=== PATIENT | male | born 1990 | race American Indian/Alaskan Native ===

== ENCOUNTER 2019-02-03 21:27 | Inpatient (IN) | payer SELFPAY ==
--- NOTE | 2019-02-03 23:02 | EDM.PDOC ---
ED HPI GENERAL MEDICAL PROBLEM - General Chief Complaint: Gastrointestinal Problem Stated Complaint: VOMITING, WEIGHT LOSS x1 WEEK Time Seen by Provider: 02/03/19 22:35 Source of Information: Reports: Patient History Limitations: Reports: No Limitations - History of Present Illness INITIAL COMMENTS - FREE TEXT/NARRATIVE: This 29 yo male patient reports to the ED with generalized weakness. The patient reports he has lost 20-30 pounds over the past 3 weeks. The patient reports diffuse abdominal pain. The patient reports he has had difficulties having bowel movements. The patient reports he has hat intermittent episodes of vomiting (last episode was this evening). The patient admits to IV drug use up to 2 weeks ago. The patient continues to smoke marijuana and cigarettes. The patient admits to having a poor diet. The patient has a family history of diabetes and states he used to be a diabetic as a child. Duration: Week(s):, Constant, Getting Worse Location: Reports: Generalized Quality: Reports: Other Severity: Moderate Improves with: Reports: None Worsens with: Reports: None Context: Reports: Other - Related Data Allergies Allergy/AdvReac Type Severity Reaction Status Date / Time amphetamine [From Adderall] Allergy Other Verified 02/03/19 21:44 dextroamphetamine Allergy Other Verified 02/03/19 21:44 [From Adderall] Home Meds: Home Meds . [No Known Home Meds] 01/30/14 [History] Past Medical History - Past Health History Medical/Surgical History: Denies Medical/Surgical History Social & Family History - Tobacco Use Smoking Status *Q: Never Smoker - Caffeine Use Caffeine Use: Reports: Coffee - Recreational Drug Use Recreational Drug Use: Yes Drug Use in Last 12 Months: Yes Recreational Drug Type: Reports: Marijuana/Hashish, Methaqualone Recreational Drug Use Frequency: Daily Recreational Drug Last Use: Marijuana daily ED ROS GENERAL - Review of Systems Review Of Systems: ROS reveals no pertinent complaints other than HPI. ED EXAM, GENERAL - Physical Exam Exam: See Below Exam Limited By: No Limitations General Appearance: Alert, WD/WN, Moderate Distress Eye Exam: Bilateral Eye: EOMI, Normal Inspection, PERRL Ears: Normal External Exam, Normal Canal, Hearing Grossly Normal, Normal TMs Nose: Normal Inspection, Normal Mucosa, No Blood Throat/Mouth: Normal Inspection, Normal Lips, Normal Teeth, Normal Gums, Normal Oropharynx, Normal Voice, No Airway Compromise Head: Atraumatic, Normocephalic Neck: Normal Inspection, Supple, Non-Tender, Full Range of Motion Respiratory/Chest: No Respiratory Distress, Lungs Clear, Normal Breath Sounds, No Accessory Muscle Use, Chest Non-Tender Cardiovascular: Normal Peripheral Pulses, Regular Rate, Rhythm, No Edema, No Gallop, No JVD, No Murmur, No Rub GI/Abdominal: Normal Bowel Sounds, Soft, No Organomegaly, No Distention, No Abnormal Bruit, No Mass, Pelvis Stable, Tender (diffuse abdominal tenderness), Other (Scar RLQ from appendectomy) (Male) Exam: Deferred Rectal (Males) Exam: Deferred Back Exam: Normal Inspection, Full Range of Motion, NT Extremities: Normal Inspection, Normal Range of Motion, Non-Tender, Normal Capillary Refill, No Pedal Edema Neurological: Alert, Oriented, CN II-XII Intact, Normal Cognition, Normal Gait, Normal Reflexes, No Motor/Sensory Deficits Psychiatric: Depressed Mood, Flat Affect Skin Exam: Warm, Dry, Intact, Normal Color, No Rash Lymphatic: No Adenopathy Course - Vital Signs Last Recorded V/S: Last Vital Signs Temp 36.6 C 02/03/19 21:35 Pulse 98 02/03/19 21:35 Resp 16 02/03/19 21:35 BP 134/82 02/03/19 21:35 Pulse Ox 96 02/03/19 21:35 - Orders/Labs/Meds Orders: Active Orders 24 hr Category Date Time Status CULTURE BLOOD [BC] Stat Lab 02/03/19 22:41 Ordered KETONES,BLOOD [CHEM] Stat Lab 02/04/19 00:05 Ordered Insulin Regular, Human [HumuLIN R] 100 unit Med 02/04/19 01:00 Ordered Sodium Chloride 0.9% [Normal Saline] 99 ml IV TITRATE Medication Orders Insulin Human Regular 100 unit (/ Sodium Chloride) 100 mls @ 2 mls/hr IV TITRATE DAPHNE; Protocol Labs: Laboratory Tests 02/03/19 02/03/19 02/03/19 Range/Units 22:52 22:52 22:52 WBC (5.0-10.0) 10^3/uL RBC (4.6-6.2) 10^6/uL Hgb (14.0-18.0) g/dL Hct (40.0-54.0) % MCV (80-100) fL MCH (27.0-34.0) pg MCHC (33.0-35.0) g/dL Plt Count (150-450) 10^3/uL Neut % (Auto) (42.2-75.2) % Lymph % (Auto) (20.5-50.1) % Coleman % (Auto) (2-8) % Eos % (Auto) (1.0-3.0) % Baso % (Auto) (0.0-1.0) % ABG pH (7.35-7.45) ABG pCO2 (35-45) mmHg ABG pO2 (70-100) mmHg ABG HCO3 (22-26) mmol/L ABG O2 Saturation (95-100) % ABG Base Excess ((-2)-(+3)) mmol/L Juan Carlos Test O2 Delivery Device Sodium (135-145) mmol/L Potassium (3.6-5.0) mmol/L Chloride (101-111) mmol/L Carbon Dioxide (21.0-31.0) mmol/L Anion Gap BUN (7-18) mg/dL Creatinine (0.6-1.3) mg/dL Est Cr Clr Drug Dosing mL/min Estimated GFR (MDRD) BUN/Creatinine Ratio Glucose (74-105) mg/dL Lactic Acid (0.5-2.2) mmol/L Calcium (8.4-10.2) mg/dl Magnesium 2.1 (1.8-2.5) mg/dL Total Bilirubin (0.2-1.0) mg/dL AST (10-42) IU/L ALT (10-60) IU/L Alkaline Phosphatase (42-121) IU/L Ammonia (11-35) umol/L Total Protein (6.7-8.2) g/dl Albumin (3.2-5.5) g/dl Globulin Albumin/Globulin Ratio Amylase 34 (28-100) U/L Lipase 46 (22-51) U/L Urine Color Yellow (YELLOW) Urine Appearance Clear (CLEAR) Urine pH 5.5 (5.0-9.0) Ur Specific [place] 1.010 (1.005-1.030) Urine Protein Negative (NEGATIVE) Urine Glucose (UA) 500 H (NEGATIVE) Urine Ketones 40 H (NEGATIVE) Urine Occult Blood Negative (NEGATIVE) Urine Nitrite Negative (NEGATIVE) Urine Bilirubin Negative (NEGATIVE) Urine Urobilinogen 0.2 (0.2-1.0) mg/dL Ur Leukocyte Esterase Negative (NEGATIVE) Urine Opiates Screen Negative (NEGATIVE) Ur Oxycodone Screen Negative (NEGATIVE) Urine Methadone Screen Negative (NEGATIVE) Acetaminophen < 10.0 ug/mL Ur Barbiturates Screen Negative (NEGATIVE) U Tricyclic Antidepress Negative (NEGATIVE) Ur Phencyclidine Scrn Negative (NEGATIVE) Ur Amphetamine Screen Negative (NEGATIVE) U Methamphetamines Scrn Negative (NEGATIVE) Urine MDMA Screen Negative (NEGATIVE) U Benzodiazepines Scrn Negative (NEGATIVE) Urine Cocaine Screen Negative (NEGATIVE) U Marijuana (THC) Screen Negative (NEGATIVE) Ethyl Alcohol < 5 mg/dL 02/03/19 02/03/19 02/03/19 Range/Units 22:52 22:52 22:52 WBC 7.4 (5.0-10.0) 10^3/uL RBC 4.62 (4.6-6.2) 10^6/uL Hgb 14.6 (14.0-18.0) g/dL Hct 43.8 (40.0-54.0) % MCV 94.8 (80-100) fL MCH 31.6 (27.0-34.0) pg MCHC 33.3 (33.0-35.0) g/dL Plt Count 192 (150-450) 10^3/uL Neut % (Auto) 77.2 H (42.2-75.2) % Lymph % (Auto) 14.4 L (20.5-50.1) % Coleman % (Auto) 5.8 (2-8) % Eos % (Auto) 1.8 (1.0-3.0) % Baso % (Auto) 0.8 (0.0-1.0) % ABG pH (7.35-7.45) ABG pCO2 (35-45) mmHg ABG pO2 (70-100) mmHg ABG HCO3 (22-26) mmol/L ABG O2 Saturation (95-100) % ABG Base Excess ((-2)-(+3)) mmol/L Juan Carlos Test O2 Delivery Device Sodium (135-145) mmol/L Potassium (3.6-5.0) mmol/L Chloride (101-111) mmol/L Carbon Dioxide (21.0-31.0) mmol/L Anion Gap BUN (7-18) mg/dL Creatinine (0.6-1.3) mg/dL Est Cr Clr Drug Dosing mL/min Estimated GFR (MDRD) BUN/Creatinine Ratio Glucose (74-105) mg/dL Lactic Acid 1.1 (0.5-2.2) mmol/L Calcium (8.4-10.2) mg/dl Magnesium (1.8-2.5) mg/dL Total Bilirubin (0.2-1.0) mg/dL AST (10-42) IU/L ALT (10-60) IU/L Alkaline Phosphatase (42-121) IU/L Ammonia 16 (11-35) umol/L Total Protein (6.7-8.2) g/dl Albumin (3.2-5.5) g/dl Globulin Albumin/Globulin Ratio Amylase (28-100) U/L Lipase (22-51) U/L Urine Color (YELLOW) Urine Appearance (CLEAR) Urine pH (5.0-9.0) Ur Specific [place] (1.005-1.030) Urine Protein (NEGATIVE) Urine Glucose (UA) (NEGATIVE) Urine Ketones (NEGATIVE) Urine Occult Blood (NEGATIVE) Urine Nitrite (NEGATIVE) Urine Bilirubin (NEGATIVE) Urine Urobilinogen (0.2-1.0) mg/dL Ur Leukocyte Esterase (NEGATIVE) Urine Opiates Screen (NEGATIVE) Ur Oxycodone Screen (NEGATIVE) Urine Methadone Screen (NEGATIVE) Acetaminophen ug/mL Ur Barbiturates Screen (NEGATIVE) U Tricyclic Antidepress (NEGATIVE) Ur Phencyclidine Scrn (NEGATIVE) Ur Amphetamine Screen (NEGATIVE) U Methamphetamines Scrn (NEGATIVE) Urine MDMA Screen (NEGATIVE) U Benzodiazepines Scrn (NEGATIVE) Urine Cocaine Screen (NEGATIVE) U Marijuana (THC) Screen (NEGATIVE) Ethyl Alcohol mg/dL 02/03/19 02/04/19 Range/Units 22:52 00:29 WBC (5.0-10.0) 10^3/uL RBC (4.6-6.2) 10^6/uL Hgb (14.0-18.0) g/dL Hct (40.0-54.0) % MCV (80-100) fL MCH (27.0-34.0) pg MCHC (33.0-35.0) g/dL Plt Count (150-450) 10^3/uL Neut % (Auto) (42.2-75.2) % Lymph % (Auto) (20.5-50.1) % Coleman % (Auto) (2-8) % Eos % (Auto) (1.0-3.0) % Baso % (Auto) (0.0-1.0) % ABG pH 7.33 L (7.35-7.45) ABG pCO2 40 (35-45) mmHg ABG pO2 83 (70-100) mmHg ABG HCO3 20.8 L (22-26) mmol/L ABG O2 Saturation 97 (95-100) % ABG Base Excess -4 L ((-2)-(+3)) mmol/L Juan Carlos Test Performed O2 Delivery Device Room air Sodium 125 L (135-145) mmol/L Potassium 3.9 (3.6-5.0) mmol/L Chloride 86 L (101-111) mmol/L Carbon Dioxide 23.0 (21.0-31.0) mmol/L Anion Gap 19.9 BUN 19 H (7-18) mg/dL Creatinine 1.1 (0.6-1.3) mg/dL Est Cr Clr Drug Dosing 94.42 mL/min Estimated GFR (MDRD) > 60 BUN/Creatinine Ratio 17.27 Glucose 1154 H* (74-105) mg/dL Lactic Acid (0.5-2.2) mmol/L Calcium 9.3 (8.4-10.2) mg/dl Magnesium (1.8-2.5) mg/dL Total Bilirubin 1.5 H (0.2-1.0) mg/dL AST 27 (10-42) IU/L ALT 62 H (10-60) IU/L Alkaline Phosphatase 185 H (42-121) IU/L Ammonia (11-35) umol/L Total Protein 7.0 (6.7-8.2) g/dl Albumin 3.9 (3.2-5.5) g/dl Globulin 3.1 Albumin/Globulin Ratio 1.26 Amylase (28-100) U/L Lipase (22-51) U/L Urine Color (YELLOW) Urine Appearance (CLEAR) Urine pH (5.0-9.0) Ur Specific [place] (1.005-1.030) Urine Protein (NEGATIVE) Urine Glucose (UA) (NEGATIVE) Urine Ketones (NEGATIVE) Urine Occult Blood (NEGATIVE) Urine Nitrite (NEGATIVE) Urine Bilirubin (NEGATIVE) Urine Urobilinogen (0.2-1.0) mg/dL Ur Leukocyte Esterase (NEGATIVE) Urine Opiates Screen (NEGATIVE) Ur Oxycodone Screen (NEGATIVE) Urine Methadone Screen (NEGATIVE) Acetaminophen ug/mL Ur Barbiturates Screen (NEGATIVE) U Tricyclic Antidepress (NEGATIVE) Ur Phencyclidine Scrn (NEGATIVE) Ur Amphetamine Screen (NEGATIVE) U Methamphetamines Scrn (NEGATIVE) Urine MDMA Screen (NEGATIVE) U Benzodiazepines Scrn (NEGATIVE) Urine Cocaine Screen (NEGATIVE) U Marijuana (THC) Screen (NEGATIVE) Ethyl Alcohol mg/dL Meds: Medications Generic Name Dose Route Start Last Admin Trade Name Freq PRN Reason Stop Dose Admin Insulin Human Regular 100 unit 100 mls @ 2 mls/hr 02/04/19 01:00 / Sodium Chloride IV TITRATE DAPHNE Protocol 2 UNIT/HR Discontinued Medications Generic Name Dose Route Start Last Admin Trade Name Freq PRN Reason Stop Dose Admin Sodium Chloride 1,000 mls @ 999 mls/hr 02/03/19 23:31 02/04/19 00:07 Normal Saline IV 02/04/19 00:31 999 mls/hr .BOLUS ONE Administration Departure - Departure Time of Disposition: 00:51 Disposition: Admitted As Inpatient 67 Condition: Fair Clinical Impression: DKA (diabetic ketoacidoses) Qualifiers: Diabetes mellitus type: other specified (including NGOC) Diabetes mellitus complication detail: without coma Qualified Code(s): E13.10 - Other specified diabetes mellitus with ketoacidosis without coma - Discharge Information *PRESCRIPTION DRUG MONITORING PROGRAM REVIEWED*: Not Applicable *COPY OF PRESCRIPTION DRUG MONITORING REPORT IN PATIENT NIR: Not Applicable Care Plan Goals: Discussed the patient's history, examination and lab results with Dr. Fatima. Dr. Fatima accepted the patient for continued evaluation and management as an inpatient at [facility]. - My Orders Last 24 Hours: My Active Orders 02/03/19 22:41 CULTURE BLOOD [BC] Stat 02/04/19 00:05 KETONES,BLOOD [CHEM] Stat 02/04/19 01:00 Insulin Regular, Human [HumuLIN R] 100 unit Sodium Chloride 0.9% [Normal Saline] 99 ml IV TITRATE - Assessment/Plan Last 24 Hours: My Active Orders 02/03/19 22:41 CULTURE BLOOD [BC] Stat 02/04/19 00:05 KETONES,BLOOD [CHEM] Stat 02/04/19 01:00 Insulin Regular, Human [HumuLIN R] 100 unit Sodium Chloride 0.9% [Normal Saline] 99 ml IV TITRATE
[2019-02-03 23:20] LABS: ANION GAP 19.9; CHLORIDE,CL 86 mmol/L (101-111); SODIUM,NA 125 mmol/L (135-145)
[2019-02-03 23:23] LABS: ACETAMINOPHEN < 10.0 ug/mL
[2019-02-03] MEDS ORDERED: Sodium Chloride 0.9% 1,000 ML IV ONE (23:31)
[2019-02-04 00:33] LABS: ALLEN TEST PERFORMED; BASE EXCESS ARTERIAL -4 mmol/L ((-2)-(+3)); BICARBONATE,ARTERIAL 20.8 mmol/L (22-26); O2 DELIVERY DEVICE ROOM AIR; O2 SATURATION ARTERIAL 97 % (95-100); PCO2 ARTERIAL 40 mmHg (35-45); PO2 ARTERIAL 83 mmHg (70-100)
[2019-02-04] MEDS ORDERED: Sodium Chloride 0.9% 1,000 ML IV ONE (01:25)
[2019-02-04] MEDS ORDERED: Dextrose 5%-0.45% NaCl 1,000 ML IV PRN (01:29)
[2019-02-04] MEDS ORDERED: Sodium Chloride 0.9% 1,000 ML IV SCH (01:30)
[2019-02-04 01:57] LABS: ANION GAP 20.6; CHLORIDE,CL 98 mmol/L (101-111); SODIUM,NA 138 mmol/L (135-145)
[2019-02-04] MEDS: Potassium Chloride 20 MEQ in Premix Bag 1 BAG IV ONE ×2 (02:11→02:12)
[2019-02-04] MEDS: Potassium Chloride 20 MEQ in Premix Bag 1 BAG IV PRN ×2 (02:11→04:08)
[2019-02-04] MEDS ORDERED: D5 1/2 NS w/ 40 mEq/L KCl 1,000 ML IV SCH (06:30)
[2019-02-04] MEDS ORDERED: Potassium Chloride 20 MEQ in Premix Bag 2 BAG IV PRN (06:34)
[2019-02-04] MEDS: Potassium Chloride 20 MEQ in Premix Bag 1 BAG IV SCH ×2 (07:20→10:03)
[2019-02-04 08:05] LABS: ANION GAP 11.4; CHLORIDE,CL 108 mmol/L (101-111); SODIUM,NA 141 mmol/L (135-145)
[2019-02-04] MEDS: Insulin Glarg,Human.Rec.Analog 100 UNIT/ML ML SUBCUT SCH (09:41)
--- NOTE | 2019-02-04 09:41 | PCM.HP ---
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 He presented to the emergency room with complaint of intermittent nausea and vomiting that has been going on for the past 3 weeks. Symptoms has worsened over time. He also has associated abdominal cramps and pain which also has been worsening over time. Describes good appetite. Patient has been having constipation. No fever documented. Has not been coughing and also denies dysuria or frequency or micturition. In the emergency room his blood sugar was found to be greater than 1000. Patient was given intravenous insulin. Anion gap was found to be elevated at 19. His pH was about 7.3. The patient stated that he has lost about 30 pounds unintentionally in the past 2-3 weeks. - Related Data Allergies/Adverse Reactions: Allergies Allergy/AdvReac Type Severity Reaction Status Date / Time amphetamine [From Adderall] Allergy Other Verified 02/03/19 21:44 dextroamphetamine Allergy Other Verified 02/03/19 21:44 [From Adderall] Home Medications: Home Meds . [No Known Home Meds] 01/30/14 [History] Past Medical History - Past Health History Medical/Surgical History: Denies Medical/Surgical History Social & Family History - Tobacco Use Smoking Status *Q: Current Every Day Smoker Years of Tobacco use: 14 Packs/Tins Daily: 1 Used Tobacco, but Quit: No Second Hand Smoke Exposure: Yes - Caffeine Use Caffeine Use: Reports: Coffee Caffeine Use Comment: 1 bpot of coffee - Recreational Drug Use Recreational Drug Use: Yes Drug Use in Last 12 Months: Yes Recreational Drug Type: Reports: Marijuana/Hashish Recreational Drug Use Frequency: Weekly Recreational Drug Last Use: Marijuana daily H&P Review of Systems - Review of Systems: Review Of Systems: See Below General: Reports: Malaise, Weakness HEENT: Reports: No Symptoms Pulmonary: Reports: No Symptoms Cardiovascular: Reports: No Symptoms Gastrointestinal: Reports: Abdominal Pain, Nausea, Vomiting Genitourinary: Reports: No Symptoms Musculoskeletal: Reports: No Symptoms Skin: Reports: No Symptoms Psychiatric: Reports: No Symptoms Exam - Exam Exam: See Below - Vital Signs Vital Signs: Last Vital Signs Temp 36.8 C 02/04/19 01:00 Pulse 86 02/04/19 01:00 Resp 16 02/04/19 01:00 BP 148/99 H 02/04/19 01:00 Pulse Ox 99 02/04/19 01:00 Weight: 66.043 kg - Exam General: Alert, Oriented, Cooperative, Other (Weak) Neck: Supple, Trachea Midline, 2 Lungs: Clear to Auscultation, Normal Respiratory Effort Cardiovascular: Regular Rate, Regular Rhythm GI/Abdominal Exam: Normal Bowel Sounds, Soft, Non-Tender, No Organomegaly, No Distention, No Abnormal Bruit, No Mass, Pelvis Stable Back Exam: Normal Inspection, Full Range of Motion, NT Extremities: Normal Inspection, Normal Range of Motion, Non-Tender, No Pedal Edema, Normal Capillary Refill - Patient Data Lab Results Last 24 hrs: Laboratory Results - last 24 hr 02/03/19 02/03/19 02/03/19 Range/Units 22:52 22:52 22:52 WBC (5.0-10.0) 10^3/uL RBC (4.6-6.2) 10^6/uL Hgb (14.0-18.0) g/dL Hct (40.0-54.0) % MCV (80-100) fL MCH (27.0-34.0) pg MCHC (33.0-35.0) g/dL Plt Count (150-450) 10^3/uL Neut % (Auto) (42.2-75.2) % Lymph % (Auto) (20.5-50.1) % Coleman % (Auto) (2-8) % Eos % (Auto) (1.0-3.0) % Baso % (Auto) (0.0-1.0) % ABG pH (7.35-7.45) ABG pCO2 (35-45) mmHg ABG pO2 (70-100) mmHg ABG HCO3 (22-26) mmol/L ABG O2 Saturation (95-100) % ABG Base Excess ((-2)-(+3)) mmol/L Juan Carlos Test O2 Delivery Device Sodium (135-145) mmol/L Potassium (3.6-5.0) mmol/L Chloride (101-111) mmol/L Carbon Dioxide (21.0-31.0) mmol/L Anion Gap BUN (7-18) mg/dL Creatinine (0.6-1.3) mg/dL Est Cr Clr Drug Dosing mL/min Estimated GFR (MDRD) BUN/Creatinine Ratio Glucose (74-105) mg/dL POC Glucose (70-105) mg/dl Lactic Acid (0.5-2.2) mmol/L Calcium (8.4-10.2) mg/dl Magnesium 2.1 (1.8-2.5) mg/dL Total Bilirubin (0.2-1.0) mg/dL AST (10-42) IU/L ALT (10-60) IU/L Alkaline Phosphatase (42-121) IU/L Ammonia (11-35) umol/L Total Protein (6.7-8.2) g/dl Albumin (3.2-5.5) g/dl Globulin Albumin/Globulin Ratio Amylase 34 (28-100) U/L Lipase 46 (22-51) U/L Urine Color Yellow (YELLOW) Urine Appearance Clear (CLEAR) Urine pH 5.5 (5.0-9.0) Ur Specific [place] 1.010 (1.005-1.030) Urine Protein Negative (NEGATIVE) Urine Glucose (UA) 500 H (NEGATIVE) Urine Ketones 40 H (NEGATIVE) Urine Occult Blood Negative (NEGATIVE) Urine Nitrite Negative (NEGATIVE) Urine Bilirubin Negative (NEGATIVE) Urine Urobilinogen 0.2 (0.2-1.0) mg/dL Ur Leukocyte Esterase Negative (NEGATIVE) Urine Opiates Screen Negative (NEGATIVE) Ur Oxycodone Screen Negative (NEGATIVE) Urine Methadone Screen Negative (NEGATIVE) Acetaminophen < 10.0 ug/mL Ur Barbiturates Screen Negative (NEGATIVE) U Tricyclic Antidepress Negative (NEGATIVE) Ur Phencyclidine Scrn Negative (NEGATIVE) Ur Amphetamine Screen Negative (NEGATIVE) U Methamphetamines Scrn Negative (NEGATIVE) Urine MDMA Screen Negative (NEGATIVE) U Benzodiazepines Scrn Negative (NEGATIVE) Urine Cocaine Screen Negative (NEGATIVE) U Marijuana (THC) Screen Negative (NEGATIVE) Ethyl Alcohol < 5 mg/dL Ketones 02/03/19 02/03/19 02/03/19 Range/Units 22:52 22:52 22:52 WBC 7.4 (5.0-10.0) 10^3/uL RBC 4.62 (4.6-6.2) 10^6/uL Hgb 14.6 (14.0-18.0) g/dL Hct 43.8 (40.0-54.0) % MCV 94.8 (80-100) fL MCH 31.6 (27.0-34.0) pg MCHC 33.3 (33.0-35.0) g/dL Plt Count 192 (150-450) 10^3/uL Neut % (Auto) 77.2 H (42.2-75.2) % Lymph % (Auto) 14.4 L (20.5-50.1) % Coleman % (Auto) 5.8 (2-8) % Eos % (Auto) 1.8 (1.0-3.0) % Baso % (Auto) 0.8 (0.0-1.0) % ABG pH (7.35-7.45) ABG pCO2 (35-45) mmHg ABG pO2 (70-100) mmHg ABG HCO3 (22-26) mmol/L ABG O2 Saturation (95-100) % ABG Base Excess ((-2)-(+3)) mmol/L Juan [place] Test O2 Delivery Device Sodium (135-145) mmol/L Potassium (3.6-5.0) mmol/L Chloride (101-111) mmol/L Carbon Dioxide (21.0-31.0) mmol/L Anion Gap BUN (7-18) mg/dL Creatinine (0.6-1.3) mg/dL Est Cr Clr Drug Dosing mL/min Estimated GFR (MDRD) BUN/Creatinine Ratio Glucose (74-105) mg/dL POC Glucose (70-105) mg/dl Lactic Acid 1.1 (0.5-2.2) mmol/L Calcium (8.4-10.2) mg/dl Magnesium (1.8-2.5) mg/dL Total Bilirubin (0.2-1.0) mg/dL AST (10-42) IU/L ALT (10-60) IU/L Alkaline Phosphatase (42-121) IU/L Ammonia 16 (11-35) umol/L Total Protein (6.7-8.2) g/dl Albumin (3.2-5.5) g/dl Globulin Albumin/Globulin Ratio Amylase (28-100) U/L Lipase (22-51) U/L Urine Color (YELLOW) Urine Appearance (CLEAR) Urine pH (5.0-9.0) Ur Specific [place] (1.005-1.030) Urine Protein (NEGATIVE) Urine Glucose (UA) (NEGATIVE) Urine Ketones (NEGATIVE) Urine Occult Blood (NEGATIVE) Urine Nitrite (NEGATIVE) Urine Bilirubin (NEGATIVE) Urine Urobilinogen (0.2-1.0) mg/dL Ur Leukocyte Esterase (NEGATIVE) Urine Opiates Screen (NEGATIVE) Ur Oxycodone Screen (NEGATIVE) Urine Methadone Screen (NEGATIVE) Acetaminophen ug/mL Ur Barbiturates Screen (NEGATIVE) U Tricyclic Antidepress (NEGATIVE) Ur Phencyclidine Scrn (NEGATIVE) Ur Amphetamine Screen (NEGATIVE) U Methamphetamines Scrn (NEGATIVE) Urine MDMA Screen (NEGATIVE) U Benzodiazepines Scrn (NEGATIVE) Urine Cocaine Screen (NEGATIVE) U Marijuana (THC) Screen (NEGATIVE) Ethyl Alcohol mg/dL Ketones 02/03/19 02/03/19 02/04/19 Range/Units 22:52 22:52 00:29 WBC (5.0-10.0) 10^3/uL RBC (4.6-6.2) 10^6/uL Hgb (14.0-18.0) g/dL Hct (40.0-54.0) % MCV (80-100) fL MCH (27.0-34.0) pg MCHC (33.0-35.0) g/dL Plt Count (150-450) 10^3/uL Neut % (Auto) (42.2-75.2) % Lymph % (Auto) (20.5-50.1) % Coleman % (Auto) (2-8) % Eos % (Auto) (1.0-3.0) % Baso % (Auto) (0.0-1.0) % ABG pH 7.33 L (7.35-7.45) ABG pCO2 40 (35-45) mmHg ABG pO2 83 (70-100) mmHg ABG HCO3 20.8 L (22-26) mmol/L ABG O2 Saturation 97 (95-100) % ABG Base Excess -4 L ((-2)-(+3)) mmol/L Juan Carlos Test Performed O2 Delivery Device Room air Sodium 125 L (135-145) mmol/L Potassium 3.9 (3.6-5.0) mmol/L Chloride 86 L (101-111) mmol/L Carbon Dioxide 23.0 (21.0-31.0) mmol/L Anion Gap 19.9 BUN 19 H (7-18) mg/dL Creatinine 1.1 (0.6-1.3) mg/dL Est Cr Clr Drug Dosing 94.42 mL/min Estimated GFR (MDRD) > 60 BUN/Creatinine Ratio 17.27 Glucose 1154 H* (74-105) mg/dL POC Glucose (70-105) mg/dl Lactic Acid (0.5-2.2) mmol/L Calcium 9.3 (8.4-10.2) mg/dl Magnesium (1.8-2.5) mg/dL Total Bilirubin 1.5 H (0.2-1.0) mg/dL AST 27 (10-42) IU/L ALT 62 H (10-60) IU/L Alkaline Phosphatase 185 H (42-121) IU/L Ammonia (11-35) umol/L Total Protein 7.0 (6.7-8.2) g/dl Albumin 3.9 (3.2-5.5) g/dl Globulin 3.1 Albumin/Globulin Ratio 1.26 Amylase (28-100) U/L Lipase (22-51) U/L Urine Color (YELLOW) Urine Appearance (CLEAR) Urine pH (5.0-9.0) Ur Specific [place] (1.005-1.030) Urine Protein (NEGATIVE) Urine Glucose (UA) (NEGATIVE) Urine Ketones (NEGATIVE) Urine Occult Blood (NEGATIVE) Urine Nitrite (NEGATIVE) Urine Bilirubin (NEGATIVE) Urine Urobilinogen (0.2-1.0) mg/dL Ur Leukocyte Esterase (NEGATIVE) Urine Opiates Screen (NEGATIVE) Ur Oxycodone Screen (NEGATIVE) Urine Methadone Screen (NEGATIVE) Acetaminophen ug/mL Ur Barbiturates Screen (NEGATIVE) U Tricyclic Antidepress (NEGATIVE) Ur Phencyclidine Scrn (NEGATIVE) Ur Amphetamine Screen (NEGATIVE) U Methamphetamines Scrn (NEGATIVE) Urine MDMA Screen (NEGATIVE) U Benzodiazepines Scrn (NEGATIVE) Urine Cocaine Screen (NEGATIVE) U Marijuana (THC) Screen (NEGATIVE) Ethyl Alcohol mg/dL Ketones Positive 02/04/19 02/04/1919 Range/Units 01:22 02:22 03:22 WBC (5.0-10.0) 10^3/uL RBC (4.6-6.2) 10^6/uL Hgb (14.0-18.0) g/dL Hct (40.0-54.0) % MCV (80-100) fL MCH (27.0-34.0) pg MCHC (33.0-35.0) g/dL Plt Count (150-450) 10^3/uL Neut % (Auto) (42.2-75.2) % Lymph % (Auto) (20.5-50.1) % Coleman % (Auto) (2-8) % Eos % (Auto) (1.0-3.0) % Baso % (Auto) (0.0-1.0) % ABG pH (7.35-7.45) ABG pCO2 (35-45) mmHg ABG pO2 (70-100) mmHg ABG HCO3 (22-26) mmol/L ABG O2 Saturation (95-100) % ABG Base Excess ((-2)-(+3)) mmol/L Juan Carlos Test O2 Delivery Device Sodium 138 D (135-145) mmol/L Potassium 3.6 3.5 L 3.4 L (3.6-5.0) mmol/L Chloride 98 L D (101-111) mmol/L Carbon Dioxide 23.0 (21.0-31.0) mmol/L Anion Gap 20.6 BUN 17 (7-18) mg/dL Creatinine 1.0 (0.6-1.3) mg/dL Est Cr Clr Drug Dosing 103.86 mL/min Estimated GFR (MDRD) > 60 BUN/Creatinine Ratio Glucose 540 H* 433 H* 344 H (74-105) mg/dL POC Glucose (70-105) mg/dl Lactic Acid (0.5-2.2) mmol/L Calcium 9.2 (8.4-10.2) mg/dl Magnesium (1.8-2.5) mg/dL Total Bilirubin (0.2-1.0) mg/dL AST (10-42) IU/L ALT (10-60) IU/L Alkaline Phosphatase (42-121) IU/L Ammonia (11-35) umol/L Total Protein (6.7-8.2) g/dl Albumin (3.2-5.5) g/dl Globulin Albumin/Globulin Ratio Amylase (28-100) U/L Lipase (22-51) U/L Urine Color (YELLOW) Urine Appearance (CLEAR) Urine pH (5.0-9.0) Ur Specific [place] (1.005-1.030) Urine Protein (NEGATIVE) Urine Glucose (UA) (NEGATIVE) Urine Ketones (NEGATIVE) Urine Occult Blood (NEGATIVE) Urine Nitrite (NEGATIVE) Urine Bilirubin (NEGATIVE) Urine Urobilinogen (0.2-1.0) mg/dL Ur Leukocyte Esterase (NEGATIVE) Urine Opiates Screen (NEGATIVE) Ur Oxycodone Screen (NEGATIVE) Urine Methadone Screen (NEGATIVE) Acetaminophen ug/mL Ur Barbiturates Screen (NEGATIVE) U Tricyclic Antidepress (NEGATIVE) Ur Phencyclidine Scrn (NEGATIVE) Ur Amphetamine Screen (NEGATIVE) U Methamphetamines Scrn (NEGATIVE) Urine MDMA Screen (NEGATIVE) U Benzodiazepines Scrn (NEGATIVE) Urine Cocaine Screen (NEGATIVE) U Marijuana (THC) Screen (NEGATIVE) Ethyl Alcohol mg/dL Ketones 02/04/19 02/04/19 02/04/19 Range/Units 04:22 05:30 07:03 WBC (5.0-10.0) 10^3/uL RBC (4.6-6.2) 10^6/uL Hgb (14.0-18.0) g/dL Hct (40.0-54.0) % MCV (80-100) fL MCH (27.0-34.0) pg MCHC (33.0-35.0) g/dL Plt Count (150-450) 10^3/uL Neut % (Auto) (42.2-75.2) % Lymph % (Auto) (20.5-50.1) % Coleman % (Auto) (2-8) % Eos % (Auto) (1.0-3.0) % Baso % (Auto) (0.0-1.0) % ABG pH (7.35-7.45) ABG pCO2 (35-45) mmHg ABG pO2 (70-100) mmHg ABG HCO3 (22-26) mmol/L ABG O2 Saturation (95-100) % ABG Base Excess ((-2)-(+3)) mmol/L Juan Carlos Test O2 Delivery Device Sodium (135-145) mmol/L Potassium 3.3 L 3.4 L (3.6-5.0) mmol/L Chloride (101-111) mmol/L Carbon Dioxide (21.0-31.0) mmol/L Anion Gap BUN (7-18) mg/dL Creatinine (0.6-1.3) mg/dL Est Cr Clr Drug Dosing mL/min Estimated GFR (MDRD) BUN/Creatinine Ratio Glucose 284 H 239 H (74-105) mg/dL POC Glucose 237 H (70-105) mg/dl Lactic Acid (0.5-2.2) mmol/L Calcium (8.4-10.2) mg/dl Magnesium (1.8-2.5) mg/dL Total Bilirubin (0.2-1.0) mg/dL AST (10-42) IU/L ALT (10-60) IU/L Alkaline Phosphatase (42-121) IU/L Ammonia (11-35) umol/L Total Protein (6.7-8.2) g/dl Albumin (3.2-5.5) g/dl Globulin Albumin/Globulin Ratio Amylase (28-100) U/L Lipase (22-51) U/L Urine Color (YELLOW) Urine Appearance (CLEAR) Urine pH (5.0-9.0) Ur Specific [place] (1.005-1.030) Urine Protein (NEGATIVE) Urine Glucose (UA) (NEGATIVE) Urine Ketones (NEGATIVE) Urine Occult Blood (NEGATIVE) Urine Nitrite (NEGATIVE) Urine Bilirubin (NEGATIVE) Urine Urobilinogen (0.2-1.0) mg/dL Ur Leukocyte Esterase (NEGATIVE) Urine Opiates Screen (NEGATIVE) Ur Oxycodone Screen (NEGATIVE) Urine Methadone Screen (NEGATIVE) Acetaminophen ug/mL Ur Barbiturates Screen (NEGATIVE) U Tricyclic Antidepress (NEGATIVE) Ur Phencyclidine Scrn (NEGATIVE) Ur Amphetamine Screen (NEGATIVE) U Methamphetamines Scrn (NEGATIVE) Urine MDMA Screen (NEGATIVE) U Benzodiazepines Scrn (NEGATIVE) Urine Cocaine Screen (NEGATIVE) U Marijuana (THC) Screen (NEGATIVE) Ethyl Alcohol mg/dL Ketones 02/04/19 02/04/19 02/04/19 Range/Units 07:35 07:59 09:15 WBC (5.0-10.0) 10^3/uL RBC (4.6-6.2) 10^6/uL Hgb (14.0-18.0) g/dL Hct (40.0-54.0) % MCV (80-100) fL MCH (27.0-34.0) pg MCHC (33.0-35.0) g/dL Plt Count (150-450) 10^3/uL Neut % (Auto) (42.2-75.2) % Lymph % (Auto) (20.5-50.1) % Coleman % (Auto) (2-8) % Eos % (Auto) (1.0-3.0) % Baso % (Auto) (0.0-1.0) % ABG pH (7.35-7.45) ABG pCO2 (35-45) mmHg ABG pO2 (70-100) mmHg ABG HCO3 (22-26) mmol/L ABG O2 Saturation (95-100) % ABG Base Excess ((-2)-(+3)) mmol/L Juan [place] Test O2 Delivery Device Sodium 141 (135-145) mmol/L Potassium 3.4 L (3.6-5.0) mmol/L Chloride 108 (101-111) mmol/L Carbon Dioxide 25.0 (21.0-31.0) mmol/L Anion Gap 11.4 BUN 10 (7-18) mg/dL Creatinine 0.6 (0.6-1.3) mg/dL Est Cr Clr Drug Dosing 171.22 mL/min Estimated GFR (MDRD) > 60 BUN/Creatinine Ratio Glucose 255 H (74-105) mg/dL POC Glucose 228 H 266 H (70-105) mg/dl Lactic Acid (0.5-2.2) mmol/L Calcium 8.1 L (8.4-10.2) mg/dl Magnesium (1.8-2.5) mg/dL Total Bilirubin (0.2-1.0) mg/dL AST (10-42) IU/L ALT (10-60) IU/L Alkaline Phosphatase (42-121) IU/L Ammonia (11-35) umol/L Total Protein (6.7-8.2) g/dl Albumin (3.2-5.5) g/dl Globulin Albumin/Globulin Ratio Amylase (28-100) U/L Lipase (22-51) U/L Urine Color (YELLOW) Urine Appearance (CLEAR) Urine pH (5.0-9.0) Ur Specific [place] (1.005-1.030) Urine Protein (NEGATIVE) Urine Glucose (UA) (NEGATIVE) Urine Ketones (NEGATIVE) Urine Occult Blood (NEGATIVE) Urine Nitrite (NEGATIVE) Urine Bilirubin (NEGATIVE) Urine Urobilinogen (0.2-1.0) mg/dL Ur Leukocyte Esterase (NEGATIVE) Urine Opiates Screen (NEGATIVE) Ur Oxycodone Screen (NEGATIVE) Urine Methadone Screen (NEGATIVE) Acetaminophen ug/mL Ur Barbiturates Screen (NEGATIVE) U Tricyclic Antidepress (NEGATIVE) Ur Phencyclidine Scrn (NEGATIVE) Ur Amphetamine Screen (NEGATIVE) U Methamphetamines Scrn (NEGATIVE) Urine MDMA Screen (NEGATIVE) U Benzodiazepines Scrn (NEGATIVE) Urine Cocaine Screen (NEGATIVE) U Marijuana (THC) Screen (NEGATIVE) Ethyl Alcohol mg/dL Ketones Result Diagrams: 02/03/19 22:52 02/04/19 07:35 Problem List Initiated/Reviewed/Updated: Yes Orders Last 24hrs: Active Orders 24 hr Category Date Time Status Admission Diagnosis [ADT] Stat ADT 02/04/19 00:53 Ordered Admission Status [Patient Status] [ADT] Routine ADT 02/04/19 00:53 Active Patient Status [ADT] Routine ADT 02/04/19 01:00 Active Cardiac Monitoring [RC] 08,20 Care 02/04/19 01:04 Active Communication Order [RC] STAT Care 02/04/19 01:00 Active Communication Order [RC] STAT Care 02/04/19 01:00 Active Communication Order [RC] STAT Care 02/04/19 01:00 Active Communication Order [RC] STAT Care 02/04/19 01:00 Active Intake and Output [RC] QSHIFT Care 02/04/19 01:04 Active Oxygen Therapy [RC] PRN Care 02/04/19 01:00 Active Up ad [place] [RC] ASDIRECTED Care 02/04/19 00:59 Active VTE/DVT Education [RC] PER UNIT ROUTINE Care 02/04/19 01:00 Active Vital Signs [RC] Q4H Care 02/04/19 01:00 Active Consistent Carbohydrate Diet [DIET] Diet 02/04/19 Lunch Active Nothing per Oral After Midnight Diet [DIET] Diet 02/04/19 Breakfast Active BASIC METABOLIC PANEL,BMP [CHEM] Q6H Lab 02/04/19 13:27 Ordered BASIC METABOLIC PANEL,BMP [CHEM] Q6H Lab 02/04/19 19:27 Ordered CULTURE BLOOD [BC] Stat Lab 02/03/19 22:52 Received Enoxaparin [Lovenox] Med 02/04/19 09:00 Active 40 mg SUBCUT DAILY Insulin Glarg,Human.Rec.Analog [LantUS] Med 02/04/19 09:00 Active 30 unit SUBCUT DAILY Insulin Lispro [HumaLOG] Med 02/04/19 12:00 Active 10 unit SUBCUT TIDMEALS Insulin Lispro [HumaLOG] Med 02/04/19 09:00 Active See Protocol SUBCUT QID Insulin Regular, Human [HumuLIN R] 100 unit Med 02/04/19 01:15 Active Sodium Chloride 0.9% [Normal Saline] 99 ml IV TITRATE NS + KCl 20mEq/L [Normal Saline with 20 mEq KCl] 1,000 Med 02/04/19 09:00 Active ml IV ASDIRECTED Potassium Chloride [KCL 20 MEQ in Water 100 ML] 20 meq Med 02/04/19 07:15 Active Premix Bag 1 bag IV Q2H Sodium Chloride 0.9% [Normal Saline] 1,000 ml Med 02/04/19 01:30 Active IV ASDIRECTED Resuscitation Status Routine Resus Stat 02/04/19 00:59 Ordered Medication Orders Enoxaparin Sodium (Lovenox) 40 mg SUBCUT DAILY DAPHNE Insulin Human Regular 100 unit (/ Sodium Chloride) 100 mls @ 133.53 mls/hr IV TITRATE DAPHNE; Protocol Sodium Chloride (Normal Saline) 1,000 mls @ 250 mls/hr IV ASDIRECTED DAPHNE Last Infusion: 02/04/19 02:59 Dose: 500 mls/hr Admin: 02/04/19 02:59 Dose: 500 mls/hr Potassium Chloride 20 meq/ (Premix) 100 mls @ 50 mls/hr IV Q2H DAPHNE Stop: 02/04/19 11:14 Last Infusion: 02/04/19 07:29 Dose: 40 mls/hr Admin: 02/04/19 07:20 Dose: 50 mls/hr Potassium Chloride/Sodium Chloride (Normal Saline With 20 Meq Kcl) 1,000 mls @ 100 mls/hr IV ASDIRECTED [facility] Insulin Glargine (Lantus) 30 unit SUBCUT DAILY [facility] Insulin Human Lispro (Humalog) 10 unit SUBCUT TIDMEALS [facility] Insulin Human Lispro (Humalog) 0 unit SUBCUT QID DAPHNE; Protocol Assessment/Plan Comment:: #. Diabetic ketoacidosis Patient presented with blood sugar of greater than 1000 Anion gap was mildly elevated at 19 Patient has no prior history of diabetes mellitus. #. Intravenous drug use Patient uses intravenous drugs intermittently Uses methamphetamine. Last use was 2 weeks ago #. Marijuana use #. Tobacco use disorder Counseling provided Plan: Admit patient to medical floor Start patient on continuous intravenous fluids with normal saline Obtain basic metabolic panel every 6 hours Correct potassium deficit Start patient on continuous intravenous insulin drip.
[2019-02-04] MEDS: Enoxaparin 40 MG/0.4 ML Syringe SUBCUT SCH (09:42)
[2019-02-04] MEDS: Insulin Lispro 100 Units/ML 3 ML Vial SUBCUT SCH ×6 (09:42→21:25)
[2019-02-04] MEDS: NS + KCl 20mEq/L 1,000 ML IV SCH ×2 (10:26→21:19)
[2019-02-05] MEDS: NS + KCl 20mEq/L 1,000 ML IV SCH (06:37)
[2019-02-05 07:19] LABS: ANION GAP 9.4; CHLORIDE,CL 102 mmol/L (101-111); SODIUM,NA 136 mmol/L (135-145)
[2019-02-05] MEDS: Insulin Lispro 100 Units/ML 3 ML Vial SUBCUT SCH ×4 (09:27→12:23)
[2019-02-05] MEDS: Insulin Glarg,Human.Rec.Analog 100 UNIT/ML ML SUBCUT SCH (09:28)
[2019-02-05] MEDS ORDERED: Potassium Chloride 10 MEQ Tab.ER PO ONE ×2 (09:30→13:00)
--- NOTE | 2019-02-05 10:52 | PCM.DCSUM1 ---
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 He presented to the emergency room with complaint of intermittent nausea and vomiting that has been going on for the past 3 weeks. Symptoms has worsened over time. He also was having associated abdominal cramps and pain which also has been worsening over time. Described good appetite but was having polyuria and polydipsia. In the emergency room his blood sugar was found to be greater than 1000. Patient was given intravenous insulin. Anion gap was found to be elevated at 19. His pH was about 7.3. The patient stated that he has lost about 30 pounds unintentionally in the past 2-3 weeks. Patient got admitted to the hospital and was started on continuous intravenous insulin drip. Was also started on aggressive intravenous fluid resuscitation. Subsequently he was switched to subcutaneous insulin. Education was provided with regard to diabetes mellitus Final diagnoses: #. Diabetic ketoacidosis Severe hyperglycemia Weight loss Tobacco use disorder Illicit drug use Diagnosis: Stroke: No - Discharge Data Discharge Date: 02/05/19 Discharge Disposition: Home, Self-Care 01 Condition: Stable - Patient Instructions Diet: Diabetic Diet Activity: As Tolerated Driving: May Drive Today Showering/Bathing: May Shower Notify Provider of: Fever, Increased Pain, Swelling and Redness Other/Special Instructions: f/up with PMD in one week - Discharge Plan *PRESCRIPTION DRUG MONITORING PROGRAM REVIEWED*: Not Applicable *COPY OF PRESCRIPTION DRUG MONITORING REPORT IN PATIENT NIR: Not Applicable Prescriptions/Med Rec: Insulin Glarg,Human.Rec.Analog [Lantus] 36 unit SUBCUT DAILY 30 Days ml Insulin Lispro [HumaLOG] 12 unit SUBCUT TIDMEALS 30 Days vial Home Medications: Home Meds Insulin Glarg,Human.Rec.Analog [Lantus] 36 unit SUBCUT DAILY 30 Days ml [Rx] Insulin Lispro [HumaLOG] 12 unit SUBCUT TIDMEALS 30 Days vial 02/05/19 [Rx] Oxygen Therapy Mode: Room Air Patient Handouts: Type 2 Diabetes Mellitus, Diagnosis, Adult, Diabetes Mellitus and Foot Care, Hypoglycemia, Diabetic Ketoacidosis, Hyperglycemia, Easy -to-Read, Carbohydrate Counting for Diabetes Mellitus, Adult, Blood Glucose Monitoring, Adult, Preventing Diabetic Ketoacidosis Referrals: PCP,Unobtain [Primary Care Provider] - - Discharge Summary/Plan Comment DC Time >30 min.: No - Review of Systems General: Reports: No Symptoms HEENT: Reports: No Symptoms Pulmonary: Reports: No Symptoms Cardiovascular: Reports: No Symptoms Gastrointestinal: Reports: No Symptoms Musculoskeletal: Reports: No Symptoms - Patient Data Vitals - Most Recent: Last Vital Signs Temp 36.6 C 02/05/19 07:00 Pulse 83 02/05/19 07:00 Resp 16 02/05/19 07:00 BP 123/72 02/05/19 07:00 Pulse Ox 97 02/05/19 07:00 Weight - Most Recent: 66.043 kg I&O - Last 24 hours: Intake & Output 02/04/19 02/05/19 02/05/19 22:59 06:59 14:59 Intake Total 1207 1773 Balance 1207 1773 Lab Results - Last 24 hrs: Laboratory Results - last 24 hr 02/04/19 02/04/19 02/04/19 Range/Units 10:52 11:42 16:36 Sodium (135-145) mmol/L Potassium (3.6-5.0) mmol/L Chloride (101-111) mmol/L Carbon Dioxide (21.0-31.0) mmol/L Anion Gap BUN (7-18) mg/dL Creatinine (0.6-1.3) mg/dL Est Cr Clr Drug Dosing mL/min Estimated GFR (MDRD) Glucose (74-105) mg/dL POC Glucose 286 H 215 H 170 H (70-105) mg/dl Calcium (8.4-10.2) mg/dl 02/04/19 02/05/19 02/05/19 Range/Units 20:46 06:30 08:05 Sodium 136 (135-145) mmol/L Potassium 3.4 L (3.6-5.0) mmol/L Chloride 102 (101-111) mmol/L Carbon Dioxide 28.0 (21.0-31.0) mmol/L Anion Gap 9.4 BUN 8 (7-18) mg/dL Creatinine 0.6 (0.6-1.3) mg/dL Est Cr Clr Drug Dosing 171.22 mL/min Estimated GFR (MDRD) > 60 Glucose 212 H (74-105) mg/dL POC Glucose 175 H 208 H (70-105) mg/dl Calcium 8.2 L (8.4-10.2) mg/dl [place] Results - Last 24 hrs: Microbiology 02/03/19 22:52 Aerobic Blood Culture - Preliminary Blood NO GROWTH AFTER 1 DAY Anaerobic Blood Culture - Preliminary NO GROWTH AFTER 1 DAY Med Orders - Current: Current Medications Enoxaparin Sodium (Lovenox) 40 mg SUBCUT DAILY [facility] Last Admin: 02/04/19 09:42 Dose: 40 mg Potassium Chloride/Sodium Chloride (Normal Saline With 20 Meq Kcl) 1,000 mls @ 100 mls/hr IV ASDIRECTED DAPHNE Last Admin: 02/05/19 06:37 Dose: 100 mls/hr Insulin Glargine (Lantus) 30 unit SUBCUT DAILY [facility] Last Admin: 02/05/19 09:28 Dose: 30 units Insulin Human Lispro (Humalog) 10 unit SUBCUT TIDMEALS [facility] Last Admin: 02/05/19 09:27 Dose: 10 units Insulin Human Lispro (Humalog) 0 unit SUBCUT QID DAPHNE; Protocol Last Admin: 02/05/19 09:28 Dose: 2 units Discontinued Medications Sodium Chloride (Normal Saline) 1,000 mls @ 999 mls/hr IV .BOLUS ONE Stop: 02/04/19 00:31 Last Admin: 02/04/19 00:07 Dose: 999 mls/hr Insulin Human Regular 100 unit (/ Sodium Chloride) 100 mls @ 2 mls/hr IV TITRATE DAPHNE; Protocol Last Titration: 02/04/19 11:29 Dose: 0 unit/hr, 0 mls/hr Insulin Human Regular 100 unit (/ Sodium Chloride) 100 mls @ 133.53 mls/hr IV TITRATE DAPHNE; Protocol Stop: 02/04/19 10:30 Sodium Chloride (Normal Saline) 1,000 mls @ 250 mls/hr IV ASDIRECTED DAPHNE Last Infusion: 02/04/19 02:59 Dose: 500 mls/hr Sodium Chloride (Normal Saline) 1,000 mls @ 500 mls/hr IV .BOLUS ONE Stop: 02/04/19 03:24 Last Admin: 02/04/19 01:56 Dose: 500 mls/hr Dextrose/Sodium Chloride (Dextrose 5%-1/2 Ns) 1,000 mls @ 200 mls/hr IV ASDIRECTED PRN PRN Reason: DAPHNE WHEN BG BELOW 250MG/DL Last Infusion: 02/04/19 10:41 Dose: Infused Potassium Chloride 20 meq/ (Premix) 100 mls @ 50 mls/hr IV ONETIME ONE Stop: 02/04/19 03:27 Last Admin: 02/04/19 02:11 Dose: 50 mls/hr Potassium Chloride 20 meq/ (Premix) 100 mls @ 50 mls/hr IV ONETIME PRN PRN Reason: serum potassium <3.6 Last Admin: 02/04/19 04:08 Dose: 50 mls/hr Potassium Chloride/Dextrose/Sod Cl (D5 1/2 Ns W/ 40 Meq/L Kcl) 1,000 mls @ 50 mls/hr IV ASDIRECTED DAPH[facility] Potassium Chloride 20 meq/ (Premix) 100 mls @ 50 mls/hr IV ONETIME PRN PRN Reason: serum potassium <3.6 Potassium Chloride 20 meq/ (Premix) 100 mls @ 50 mls/hr IV Q2H [facility] Stop: 02/04/19 11:14 Last Infusion: 02/04/19 10:28 Dose: 30 mls/hr Potassium Chloride (Klor-Con 10) 40 meq PO ONETIME ONE Stop: 02/05/19 09:31 - Exam General: Reports: Alert, Oriented, Cooperative HEENT: Reports: Pupils Equal, Pupils Reactive, EOMI, Mucous Membr. Moist/[place] Neck: Reports: Supple Lungs: Reports: Clear to Auscultation, Normal Respiratory Effort Cardiovascular: Reports: Regular Rate, Regular Rhythm GI/Abdominal Exam: Normal Bowel Sounds, Soft, Non-Tender, No Organomegaly, No Distention, No Abnormal Bruit, No Mass, Pelvis Stable Back Exam: Reports: Normal Inspection, Full Range of Motion
[2019-02-05] MEDS: Enoxaparin 40 MG/0.4 ML Syringe SUBCUT SCH (12:05)
== END 2019-02-05 13:50 | disposition home or self-care (01) | DRG 639 ==
LOC: DL.ED 21:27 → DL.MS 02-04 00:53
PROVIDERS: ADMIT Hospitalist; ATTEND Hospitalist
DX: E11.10 Type 2 diabetes mellitus with ketoacidosis without coma (principal); F15.90 Other stimulant use, unspecified, uncomplicated; Z79.4 Long term (current) use of insulin; Z88.8 Allergy status to other drugs, medicaments and biological substances; F17.210 Nicotine dependence, cigarettes, uncomplicated; Z71.6 Tobacco abuse counseling; Z83.3 Family history of diabetes mellitus
CPT/HCPCS: 36415; 36600; 80048; 80053; 80305-QW; 81003; 82009; 82140; 82150; 82803; 82947; 82962; 83605; 83690; 83735; 84132; 85025; 87040; 96361; 96374; 99284-25; A9270-GY; G0480; J1650; J1815; J1815-GY; J3480; J7030; J7042; J7050

== ENCOUNTER 2019-08-16 21:22 | Inpatient (IN) | payer MEDICAID, OTHER ==
[2019-08-16] MEDS ORDERED: Iopamidol 612 MG/ML 100 ML Bottle IVPUSH ONE (21:32)
[2019-08-16] MEDS ORDERED: Sodium Chloride 0.9% 1,000 ML IV ONE (21:32)
[2019-08-16 22:39] LABS: ANION GAP 14.2 mEq/L (7-13); CHLORIDE,CL 94 mmol/L (98-107); SODIUM,NA 131 mmol/L (136-145)
[2019-08-16] MEDS ORDERED: Insulin Regular, Human 100 Units/ML 3 ML Vial IV ONE (22:40)
[2019-08-16] MEDS ORDERED: fentaNYL 100 MCG/2 ML SDV IVPUSH ONE (22:46)
--- NOTE | 2019-08-16 23:00 | EDM.PDOC ---
ED HPI GENERAL MEDICAL PROBLEM - General Chief Complaint: Skin Complaint Stated Complaint: BOIL ON RIGHT ARM ARM PAIN Time Seen by Provider: 08/16/19 23:00 Source of Information: Reports: Patient History Limitations: Reports: No Limitations - History of Present Illness INITIAL COMMENTS - FREE TEXT/NARRATIVE: Admits IVDU, missed vein when injecting meth 3 days ago. Increased redness swelling and tenderness. Blood sugars elevated today, usually 150. Unsure if fever, slept most of day. Marked red area on arm today and this lea, noted increased redness. Denies hx of skin infections. Right Lower Arm Pain Score (Numeric/FACES): 7 - Related Data Allergies Allergy/AdvReac Type Severity Reaction Status Date / Time amphetamine [From Adderall] Allergy Other Verified 08/16/19 21:32 dextroamphetamine Allergy Other Verified 08/16/19 21:32 [From Adderall] Home Meds: Home Meds Insulin Glarg,Human.Rec.Analog [Lantus] 36 unit SUBCUT DAILY 30 Days ml [Rx] Insulin Lispro [HumaLOG] 12 unit SUBCUT TIDMEALS 30 Days vial 02/05/19 [Rx] Past Medical History - Past Health History Medical/Surgical History: Denies Medical/Surgical History Endocrine/Metabolic History: Reports: Diabetes, Type II - Past Surgical History GI Surgical History: Reports: Appendectomy Social & Family History - Family History Family Medical History: Noncontributory - Tobacco Use Smoking Status *Q: Current Every Day Smoker Years of Tobacco use: 10 Packs/Tins Daily: 0.5 - Caffeine Use Caffeine Use: Reports: Coffee Caffeine Use Comment: 1 bpot of coffee - Recreational Drug Use Recreational Drug Use: Yes Recreational Drug Type: Reports: Methamphetamine Recreational Drug Last Use: t-3 ED ROS GENERAL - Review of Systems Review Of Systems: Comprehensive ROS is negative, except as noted in HPI. ED EXAM, SKIN/RASH Exam: See Below Exam Limited By: No Limitations General Appearance: Alert, Moderate Distress Eye Exam: Bilateral Eye: PERRL Ears: Normal External Exam Nose: Normal Inspection Throat/Mouth: Normal Voice Head: Atraumatic, Normocephalic Neck: Normal Inspection, Full Range of Motion Respiratory/Chest: No Respiratory Distress, Lungs Clear, Normal Breath Sounds Cardiovascular: Regular Rate, Rhythm GI/Abdominal: Normal Bowel Sounds, Soft Extremities: Normal Range of Motion, Arm Pain, Increased Warmth, Other (right forearm red swollen, prior marking of redarea has extended beyond. tender to touch. abscess formation at IV injection site. ) Neurological: Alert, Oriented Psychiatric: Normal Affect Skin: Warm, Dry, Erythema, Increased Warmth Location, Skin: Upper Extremity, Right Associated features: Warmth, Tenderness, Swelling (wrist to midd upper inner arm greatest erythema below right anticubital ) Course - Vital Signs Last Recorded V/S: Last Vital Signs Temp 99.5 F 08/16/19 23:32 Pulse 117 H 08/16/19 23:32 Resp 20 08/16/19 23:32 BP 140/78 08/16/19 23:32 Pulse Ox 98 08/16/19 23:32 - Orders/Labs/Meds Orders: Active Orders 24 hr Category Date Time Status NPO After Midnight [Nothing per Oral After Midnight Diet 08/17/19 Breakfast Active Diet] [DIET] Upper Extremity w Cont Rt [CT] Urgent Exams 08/16/19 21:32 Taken CULTURE BLOOD [BC] Stat Lab 08/16/19 21:50 Results CULTURE BLOOD [BC] Stat Lab 08/16/19 22:00 Results Blood Culture x2 Reflex Set [OM.PC] Stat Oth 08/16/19 21:32 Ordered Medication Orders Acetaminophen (Tylenol) 650 mg PO Q4H PRN PRN Reason: Pain (Mild 1-3)/fever Enoxaparin Sodium (Lovenox) 40 mg SUBCUT DAILY [facility] Sodium Chloride (Normal Saline) 1,000 mls @ 125 mls/hr IV ASDIRECTED [facility] Last Admin: 08/17/19 00:52 Dose: 125 mls/hr Vancomycin HCl 1,250 mg/ (Sodium Chloride) 250 mls @ 166.667 mls/hr IV Q8H [facility] Insulin Glargine (Lantus) 36 unit SUBCUT BEDTIME [facility] Insulin Human Lispro (Humalog) 12 unit SUBCUT TIDMEALS [facility] Morphine Sulfate (Morphine) 2 mg IVPUSH Q2H PRN PRN Reason: Pain (severe 7-10) Last Admin: 08/17/19 02:06 Dose: 2 mg Admin: 08/17/19 00:00 Dose: 2 mg Nicotine (Habitrol) 14 mg TRDERM DAILY [facility] Oxycodone/Acetaminophen (Percocet 325-5 Mg) 1 tab PO Q4H PRN PRN Reason: Pain (moderate 4-6) Last Admin: 08/16/19 23:59 Dose: 1 tab Vancomycin HCl (Pharmacy To Dose - Vancomycin) 1 dose .XX ASDIRECTED [facility] Labs: Laboratory Tests 08/16/19 08/16/19 08/16/19 Range/Units 22:00 22:00 22:00 WBC 16.5 H (5.0-10.0) 10^3/uL RBC 4.85 (4.6-6.2) 10^6/uL Hgb 15.5 (14.0-18.0) g/dL Hct 43.3 (40.0-54.0) % MCV 89.3 D (80-100) fL MCH 32.0 (27.0-34.0) pg MCHC 35.8 H (33.0-35.0) g/dL Plt Count 250 (150-450) 10^3/uL Neut % (Auto) 78.5 H (42.2-75.2) % Lymph % (Auto) 11.6 L (20.5-50.1) % Mccreary % (Auto) 7.9 (2-8) % Eos % (Auto) 0.8 L (1.0-3.0) % Baso % (Auto) 1.2 H (0.0-1.0) % Add Manual Diff Yes Neutrophils % (Manual) 82 H (42-75) % Lymphocytes % (Manual) 11 L (20-50) % Monocytes % (Manual) 7 (2-8) % Sodium 131 L (136-145) mmol/L Potassium 4.2 (3.5-5.1) mmol/L Chloride 94 L (98-107) mmol/L Carbon Dioxide 27 (21-32) mmol/L Anion Gap 14.2 H (7-13) mEq/L BUN 12 (7-18) mg/dL Creatinine 1.13 (0.70-1.30) mg/dL Est Cr Clr Drug Dosing 97.33 mL/min Estimated GFR (MDRD) > 60 BUN/Creatinine Ratio 10.6 (No establ ref range) Glucose 481 H* (74-99) mg/dL Lactic Acid 2.0 (0.4-2.0) mmol/L Calcium 8.3 L (8.5-10.1) mg/dL Total Bilirubin 0.5 (0.2-1.0) mg/dL AST 18 (15-37) U/L ALT 66 H (16-63) U/L Alkaline Phosphatase 136 H (46-116) U/L Total Protein 7.6 (6.4-8.2) g/dL Albumin 3.6 (3.4-5.0) g/dL Globulin 4.0 Albumin/Globulin Ratio 0.9 Meds: Medications Generic Name Dose Route Start Last Admin Trade Name Freq PRN Reason Stop Dose Admin Acetaminophen 650 mg 08/16/19 23:09 Tylenol PO Q4H PRN Pain (Mild 1-3)/fever Enoxaparin Sodium 40 mg 08/17/19 09:00 Lovenox SUBCUT DAILY [facility] Sodium Chloride 1,000 mls @ 125 mls/hr 08/16/19 23:15 08/17/19 00:52 Normal Saline IV 125 mls/hr ASDIRECTED DAPHNE Administration Vancomycin HCl 1,250 mg/ 250 mls @ 166.667 mls/hr 08/17/19 07:00 Sodium Chloride IV Q8H [facility] Insulin Glargine 36 unit 08/17/19 21:00 Lantus SUBCUT BEDTIME [facility] Insulin Human Lispro 12 unit 08/17/19 08:00 Humalog SUBCUT TIDMEALS [facility] Morphine Sulfate 2 mg 08/16/19 23:09 08/17/19 02:06 Morphine IVPUSH 2 mg Q2H PRN Administration Pain (severe 7-10) Nicotine 14 mg 08/17/19 09:00 Habitrol TRDERM DAILY [facility] Oxycodone/Acetaminophen 1 tab 08/16/19 23:09 08/16/19 23:59 Percocet 325-5 Mg PO 1 tab Q4H PRN Administration Pain (moderate 4-6) Vancomycin HCl 1 dose 08/16/19 23:15 Pharmacy To Dose - Vancomycin .XX ASDIRECTED DAPHNE Discontinued Medications Generic Name Dose Route Start Last Admin Trade Name Freq PRN Reason Stop Dose Admin Fentanyl 50 mcg 08/16/19 22:46 08/16/19 23:00 Sublimaze IVPUSH 08/16/19 22:47 50 mcg ONETIME ONE Administration Sodium Chloride 1,000 mls @ 999 mls/hr 08/16/19 21:32 08/16/19 22:21 Normal Saline IV 08/16/19 22:32 999 mls/hr .BOLUS ONE Administration Vancomycin HCl 1,250 mg/ 250 mls @ 166.667 mls/hr 08/16/19 22:45 08/16/19 23: 06 Sodium Chloride IV 166.667 mls/hr Q12H [facility]NE Administration Insulin Glargine 36 unit 08/17/19 09:00 Lantus SUBCUT DAILY [facility] Insulin Glargine 36 unit 08/16/19 23:20 08/16/19 23:45 Lantus SUBCUT 08/16/19 23:21 36 units ONETIME ONE Administration Insulin Human Lispro 12 unit 08/16/19 08:00 08/17/19 01:38 Humalog SUBCUT Not Given TIDMEALS [facility] Insulin Human Regular 10 unit 08/16/19 22:40 08/16/19 22:59 Humulin R IV 08/16/19 22:41 10 units ONETIME ONE Administration Iopamidol 100 ml 08/16/19 21:32 08/16/19 21:40 Isovue-300 (61%) IVPUSH 08/16/19 21:33 100 ml ONETIME ONE Administration - Re-Assessments/Exams Free Text/Narrative Re-Assessment/Exam: 08/16/19 22:[address] Clark. Will see patient in am. Patient to be NPO after midnight. Dr Nunez here. Patient will be admitted acute. Abscess right forearm with cellulitis. Hx IVDU. Departure - Departure Time of Disposition: 23:00 Disposition: Admitted As Inpatient 67 Condition: Good Clinical Impression: Abscess, IDDM (insulin dependent diabetes mellitus) Cellulitis Qualifiers: Site of cellulitis: extremity Site of cellulitis of extremity: upper extremity Laterality: right Qualified Code(s): L03.113 - Cellulitis of right upper limb - Discharge Information *PRESCRIPTION DRUG MONITORING PROGRAM REVIEWED*: No *COPY OF PRESCRIPTION DRUG MONITORING REPORT IN PATIENT NIR: No Sepsis Event Note - Evaluation Sepsis Screening Result: No Definite Risk - Focused Exam Vital Signs: Vital Signs Temp Pulse Resp BP Pulse Ox 08/16/19 21:33 100.4 F 138 H 16 131/114 H 100 Date Exam was Performed: 08/17/19 Time Exam was Performed: 02:31 - My Orders Last 24 Hours: My Active Orders 08/16/19 21:32 Upper Extremity w Cont Rt [CT] Urgent Blood Culture x2 Reflex Set [OM.PC] Stat 08/16/19 21:50 CULTURE BLOOD [BC] Stat 08/16/19 22:00 CULTURE BLOOD [BC] Stat 08/17/19 Breakfast NPO After Midnight [Nothing per Oral After Midnight Diet] [DIET] - Assessment/Plan Last 24 Hours: My Active Orders 08/16/19 21:32 Upper Extremity w Cont Rt [CT] Urgent Blood Culture x2 Reflex Set [OM.PC] Stat 08/16/19 21:50 CULTURE BLOOD [BC] Stat 08/16/19 22:00 CULTURE BLOOD [BC] Stat 08/17/19 Breakfast NPO After Midnight [Nothing per Oral After Midnight Diet] [DIET]
[2019-08-16] MEDS ORDERED: Acetaminophen 325 MG Tab PO PRN (23:09)
[2019-08-16] MEDS ORDERED: Insulin Glarg,Human.Rec.Analog 100 Unit/ML SUBCUT ONE (23:20)
[2019-08-16] MEDS: Acetaminophen/oxyCODONE 325-5 MG Tab PO PRN (23:59)
--- NOTE | 2019-08-17 00:46 | HP ---
CHIEF COMPLAINT: Pain and swelling and redness of the right arm. HISTORY OF PRESENT ILLNESS: The patient is a 29-year-old male who was admitted through the emergency room because of pain and swelling and redness of the right arm and the patient admitted that he has been shooting some methamphetamine intermittently and had some about 4 days ago. About 3 days ago, started to have some redness and pain and lately swelling accompanied by chills. Because of this, he came to the emergency room. In the emergency room, was noted to have cellulitis and possibly abscess on the right forearm. He was then admitted for further evaluation and management. REVIEW OF SYSTEMS: The patient denies any headache, chest pain, shortness of breath, abdominal pain, dysuria. PAST MEDICAL HISTORY: Remarkable for type 1 diabetes mellitus, on insulin, and history of DKA. FAMILY HISTORY: Noncontributory. SOCIAL HISTORY: The patient smokes cigarettes on a regular basis. Drinks occasional alcohol, but admits marijuana and methamphetamine use and also shooting, injecting methamphetamine. HOME MEDICATIONS: Humalog 12 units 3 times a day with meals and Lantus 36 units daily. The patient has not been so compliant with this lately for the last 3 days. ALLERGIES: Amphetamine and dextroamphetamine. PHYSICAL EXAMINATION: General: The patient is alert and oriented, not in any acute distress. Vital signs: Blood pressure is 131/114, pulse of 138, temperature of 100.4, saturation is 100% on room air. HEENT: Normocephalic. There are pink palpebral conjunctivae. Sclerae anicteric. No JVD. No lymphadenopathy. Heart: Regular rate and rhythm. Normal S1 and S2. No murmurs. Lungs: Equal bilaterally. No crackles. No wheezing. Abdomen: Soft, nontender. Bowel sounds positive. Extremities: Negative for any pedal edema. No calf tenderness. Examination of the right arm is remarkable for swelling and redness on the right forearm. LABORATORY WORKUP: CBC: WBC is 16.5, hemoglobin is 15.5, hematocrit is 43.3, platelets are 250. Comp panel: Glucose is 481, sodium is 131, chloride of 94, anion gap of 14.2, calcium of 8.3, ALT of 66, alkaline phosphatase of 136. The rest of the panel unremarkable. Blood cultures obtained. DIAGNOSTIC DATA: CT of the forearm ordered and results are still pending. ADMITTING DIAGNOSES: 1. Cellulitis of the right forearm with possible underlying abscess. 2. Systemic inflammatory response syndrome. 3. Illicit IV drug use. 4. Uncontrolled type 1 diabetes mellitus. 5. Medical noncompliance. TREATMENT PLAN: The patient is going to be admitted to General Medicine Floor. He will be started on IV antibiotics, vancomycin to cover MRSA, and we will also resume his insulin at home and we will also put him on a sliding scale insulin. We will also consult Dr. Clark for further evaluation and management of the cellulitis and possible abscess of the right forearm. The patient is full code. [facility] /[id number]
[2019-08-17] MEDS: Sodium Chloride 0.9% 1,000 ML IV SCH ×3 (00:52→21:01)
[2019-08-17] MEDS: Insulin Lispro 100 Units/ML 3 ML Vial SUBCUT SCH ×6 (01:37→17:46)
[2019-08-17] MEDS: Morphine 2 MG/ML SYRINGE IVPUSH PRN ×8 (02:06→21:16)
[2019-08-17] MEDS: Acetaminophen/oxyCODONE 325-5 MG Tab PO PRN ×4 (04:20→17:50)
[2019-08-17 06:53] LABS: ANION GAP 10.3 mEq/L (7-13); CHLORIDE,CL 101 mmol/L (98-107); SODIUM,NA 136 mmol/L (136-145)
--- NOTE | 2019-08-17 07:29 | PCM.SN ---
- Free Text/Narrative Note: Asked to see patient regarding abscess of right forearm. Secondary to drug IV. Abscess seen on CT scan measures about 4cm with surrounding cellulitis. Seem superficial without deep muscle involvement. Plan: I&D in OR with general anesthesia. Will pack open which will require daily dressing changes for a few days. Will proceed today.
[2019-08-17] MEDS ORDERED: Insulin Glarg,Human.Rec.Analog 100 Unit/ML SUBCUT SCH (09:00)
[2019-08-17] MEDS ORDERED: Potassium Chloride 10 MEQ Tab.ER PO ONE (11:00)
--- NOTE | 2019-08-17 11:37 | PN ---
DATE: 08/17/2019 SUBJECTIVE: The patient is still complaining of pain on the right arm. The patient was seen by Dr. Clark and is scheduled for incision and drainage in the operating room. Otherwise, he denies any chest pain, shortness of breath, abdominal pain, or any other complaints. OBJECTIVE: Vital Signs: Blood pressure is 137/86, pulse of 96, respirations of 18, and temperature of 98.6. Heart: Regular rate and rhythm. Normal S1 and S2. No gallops. No rubs. Lungs: Equal bilaterally. No crackles. No wheezing. Abdomen: Soft and nontender. Bowel sounds positive. Extremities: Negative for any pedal edema. No calf tenderness. Examination of the right forearm is still remarkable for the swelling and redness on the right forearm. LABORATORY DATA: Lab workup this morning: CBC; WBC is 13.4 (improving). Hemoglobin and hematocrit are within normal limits. Platelets are 207. Chem-6; potassium is 3.3, creatinine is 0.69, and glucose is 217. PLAN: We will continue with his current regimen and continue with his insulin. He will be having the incision and drainage by Dr. Clark today. [facility] /[id number]
[2019-08-17] MEDS: Nicotine 14 MG/24 Hr Patch TRDERM SCH (11:44)
[2019-08-17] MEDS: Enoxaparin 40 MG/0.4 ML Syringe SUBCUT SCH ×2 (11:44→13:05)
[2019-08-17] MEDS ORDERED: Propofol 200 MG/20 ML SDV IV ONE (13:08)
[2019-08-17] MEDS ORDERED: Glycopyrrolate 0.2 MG/ML 2 ML SDV IV ONE (13:08)
[2019-08-17] MEDS ORDERED: Rocuronium 100 MG/10 ML MDV IV ONE (13:08)
[2019-08-17] MEDS ORDERED: fentaNYL 100 MCG/2 ML SDV IV ONE (13:08)
[2019-08-17] MEDS ORDERED: Midazolam 1 MG/ML 2 ML SDV IV ONE (13:08)
[2019-08-17] MEDS ORDERED: Insulin Lispro 100 Units/ML 3 ML Vial SUBCUT SCH (16:00)
--- NOTE | 2019-08-17 16:03 | OR ---
DATE: 08/16/2019 PREOPERATIVE DIAGNOSIS: Abscess, right forearm. POSTOPERATIVE DIAGNOSIS: Abscess, right forearm. PROCEDURE: Incision and drainage with irrigation and debridement of right arm abscess. ANESTHESIA: General. ESTIMATED BLOOD LOSS: Minimum. SPECIMEN: Cultures. INDICATION FOR PROCEDURE: This 29-year-old male has an abscess that measured about 3 or 4 cm in the right arm. This is secondary to injection of IV drugs. PROCEDURE IN DETAIL: After adequate preparation, a 3 cm incision was made over the obvious abscess site on the right forearm. This was contained to the subcutaneous space and did not infiltrate down into the muscle bands. The wound was irrigated with saline, packed with a 4x4 gauze pad and the skin was left open, which will heal by secondary intention. The wound was sterilely wrapped, and the procedure was terminated. [facility] /[id number]
[2019-08-17] MEDS: Insulin Glarg,Human.Rec.Analog 100 Unit/ML SUBCUT SCH (21:07)
[2019-08-18] MEDS: Morphine 2 MG/ML SYRINGE IVPUSH PRN ×3 (00:07→15:38)
[2019-08-18] MEDS: Acetaminophen/oxyCODONE 325-5 MG Tab PO PRN ×4 (00:07→23:54)
[2019-08-18 06:49] LABS: ANION GAP 11.4 mEq/L (7-13); CHLORIDE,CL 100 mmol/L (98-107); SODIUM,NA 134 mmol/L (136-145)
[2019-08-18] MEDS: Sodium Chloride 0.9% 1,000 ML IV SCH (07:00)
[2019-08-18] MEDS ORDERED: Insulin Lispro 100 Units/ML 3 ML Vial SUBCUT SCH (08:00)
[2019-08-18] MEDS: Insulin Lispro 100 Units/ML 3 ML Vial SUBCUT SCH ×6 (08:16→17:32)
[2019-08-18] MEDS: Enoxaparin 40 MG/0.4 ML Syringe SUBCUT SCH (08:19)
[2019-08-18] MEDS: Nicotine 14 MG/24 Hr Patch TRDERM SCH (08:20)
[2019-08-18] MEDS: Insulin Glarg,Human.Rec.Analog 100 Unit/ML SUBCUT SCH (21:21)
[2019-08-19] MEDS: Insulin Lispro 100 Units/ML 3 ML Vial SUBCUT SCH ×6 (08:11→18:00)
[2019-08-19] MEDS: Acetaminophen/oxyCODONE 325-5 MG Tab PO PRN ×4 (08:14→22:25)
[2019-08-19] MEDS: Nicotine 14 MG/24 Hr Patch TRDERM SCH (08:14)
[2019-08-19] MEDS: Enoxaparin 40 MG/0.4 ML Syringe SUBCUT SCH (08:16)
--- NOTE | 2019-08-19 09:08 | PN ---
DATE: 08/19/2019 SUBJECTIVE: The patient is doing fairly well. Still complaining of some pain on the right arm, but the swelling and redness are improving. Dressing changes have been done daily. Blood culture so far has been negative and wound culture that was sent is still pending. OBJECTIVE: Vital Signs: Blood pressure is 136/78, pulse of 96, respirations of 18, temperature of 99.5, saturation is 97%. Heart: Regular rate and rhythm. Normal S1 and S2. No gallops. No rubs. Lungs: Equal bilaterally. No crackles. No wheezing. Abdomen: Soft, nontender. Bowel sounds positive. Extremities: Negative for any pedal edema. No calf tenderness. Examination of the right forearm is remarkable for the packing on the incision and drainage site, but the swelling and redness are improving. PLAN: We will continue with his current IV antibiotics (vancomycin) and continue with the rest of his current regimen and continue with his insulin. I am going to check for a CBC and basic metabolic in the morning and hopefully we will have the results of the wound culture so that we can switch his antibiotics to oral antibiotics if needed. [facility] /[id number]
[2019-08-19] MEDS: Insulin Glarg,Human.Rec.Analog 100 Unit/ML SUBCUT SCH (20:20)
[2019-08-20] MEDS: Acetaminophen/oxyCODONE 325-5 MG Tab PO PRN (06:28)
[2019-08-20 07:09] LABS: ANION GAP 13.4 mEq/L (7-13); CHLORIDE,CL 102 mmol/L (98-107); SODIUM,NA 138 mmol/L (136-145)
[2019-08-20] MEDS: Insulin Lispro 100 Units/ML 3 ML Vial SUBCUT SCH ×2 (08:15→09:53)
[2019-08-20] MEDS: Enoxaparin 40 MG/0.4 ML Syringe SUBCUT SCH (09:53)
[2019-08-20] MEDS: Nicotine 14 MG/24 Hr Patch TRDERM SCH (09:53)
--- NOTE | 2019-08-20 10:18 | DISCH ---
FINAL DIAGNOSES: 1. Cellulitis of the right forearm with abscess. 2. Systemic inflammatory response syndrome. 3. Uncontrolled type 1 diabetes mellitus. 4. Illicit IV drug use. HISTORY OF PRESENT ILLNESS: Please see H and P. Blood cultures negative and wound culture showed Streptococcus anginosus. Susceptibility is pending. HOSPITAL COURSE: The patient was admitted to General Medicine floor. He was empirically started on IV antibiotic with vancomycin and Dr. Clark was also consulted, for which the patient underwent incision and drainage. The patient's blood sugar was also managed with additional sliding scale with his current insulin. The patient did well during the hospitalization. The patient's fever and white blood cell count have improved and the patient's swelling and redness of the right arm also improved. The patient was subsequently discharged and the patient to follow up with primary care provider at [facility] in 1 week for a recheck. He is going to follow up here at the hospital for continued dressing of his wound. [facility] /[id number]
--- NOTE | 2019-08-20 11:11 | PN ---
DATE: 08/20/2019 SUBJECTIVE: The patient continues to do well, and the right arm swelling and redness have improved significantly. The wound/I and D site looks good and looks clean. The patient is requesting to go home, and he will just come back for dressing changes here on a daily basis. He denies any chest pain, shortness of breath, abdominal pain, or any other complaints. Blood sugar this morning is 142, and CBC is unremarkable. OBJECTIVE: Vital Signs: Blood pressure is 131/73, pulse of 96, respirations 20, temperature of 97.7. Heart: Regular rate and rhythm. Normal S1 and S2. No gallops, no rubs. Lungs: Equal bilaterally. No crackles. No wheezing. Abdomen: Soft, nontender. Extremities: Negative for any pedal edema. No calf tenderness. Examination of the right arm shows improvement of the redness and swelling, and the operative site/I and D site is clean and has a dressing in place. PLAN: We will discharge the patient home today. We will put him on oral antibiotics, Keflex 500 mg 4 times a day for the next 7 days, and I am still also waiting for the final culture and sensitivity of the wound culture. We will also resume his home medication, and we will have him follow up at [facility] in 1 week. [facility] /[id number]
--- NOTE | 2019-08-20 12:23 | PN ---
DATE: 08/18/2019 SUBJECTIVE: The patient had an incision and drainage by Dr. Clark on his right arm yesterday and he did have a lot of pus removed. The patient this morning is feeling a little bit better as he does not have any significant pain as compared to before on his right arm. The patient denies any chest pain, shortness of breath, nor any other complaints. LABORATORY WORKUP THIS MORNING: WBC is 10.3, hemoglobin is 14.6, hematocrit is 41.3, platelets 206. Chem-6: Sodium is 134, BUN is 6, creatinine is 0.67, and glucose is 201. OBJECTIVE: Vital Signs: Blood pressure is 134/70, pulse of 95, respirations 16, temperature of 98.8. Heart: Regular rate and rhythm. Normal S1 and S2. No gallops. No rubs. Lungs: Equal bilaterally. No crackles. No wheezing. Abdomen: Soft, nontender. Bowel sounds positive. EXTREMITIES: Negative for any pedal edema. No calf tenderness. Examination of the right arm is remarkable for the dressing. There is still some mild redness and swelling noted but slowly improving. PLAN: We will continue with his IV vancomycin and we will continue with the dressing changes as recommended by Dr. Clark, and we will continue with the rest of his management and continue with his insulin as well as the sliding scale. Blood culture so far has been negative. [facility] /[id number]
== END 2019-08-20 09:26 | disposition home or self-care (01) | DRG 580 ==
LOC: DL.ED 21:22 → DL.MS 23:05
PROVIDERS: ADMIT Internal Medicine; ATTEND Internal Medicine
PROC: 0J9G0ZZ Drainage of Right Lower Arm Subcutaneous Tissue and Fascia, Open Approach (ICD-10-PCS; principal; 2019-08-16)
DX: L02.413 Cutaneous abscess of right upper limb (principal); R65.10 Systemic inflammatory response syndrome (SIRS) of non-infectious origin without acute organ dysfunction; L03.113 Cellulitis of right upper limb; E10.9 Type 1 diabetes mellitus without complications; F19.90 Other psychoactive substance use, unspecified, uncomplicated; F17.210 Nicotine dependence, cigarettes, uncomplicated; Z88.8 Allergy status to other drugs, medicaments and biological substances; Z91.19 Patient's noncompliance with other medical treatment and regimen; Z90.49 Acquired absence of other specified parts of digestive tract; B95.4 Other streptococcus as the cause of diseases classified elsewhere
CPT/HCPCS: 36415; 73201; 80048; 80053; 80202; 82962; 83605; 85025; 87040; 87070; 87075; 87077; 96361; 96374; 99284; 99284-25; A9270-GY; J1650; J1815-GY; J2250; J2270; J2704; J3010; J3370; J3490; J7030; J7050; Q9967

== ENCOUNTER 2023-02-18 19:31 | Emergency (ER) | payer SELFPAY ==
[2023-02-18] MEDS ORDERED: Sodium Chloride 0.9% 10 ML Syringe FLUSH PRN (19:52)
[2023-02-18] MEDS ORDERED: cefTRIAXone 1 GM Vial IVPUSH ONE (19:53)
[2023-02-18] MEDS ORDERED: Acyclovir 200 MG Cap PO ONE (19:54)
[2023-02-18 20:21] LABS: BASOPHILS PERCENT AUTO 1.6 % (0.0-1.0); EOSINOPHILS PERCENT AUTO 2.4 % (1.0-3.0); HEMATOCRIT 40.8 % (40.0-54.0); HEMOGLOBIN 14.8 g/dL (14.0-18.0); LYMPHOCYTES PERCENT AUTO 28.1 % (20.5-50.1); MEAN CORPUSCULAR HEMOGLOBIN 31.8 pg (27.0-34.0); MEAN CORPUSCULAR HGB CONC 36.3 g/dL (33.0-35.0); MEAN CORPUSCULAR VOLUME 87.6 fL (80-100); MONOCYTES PERCENT AUTO 6.7 % (2-8); NEUTROPHILS PERCENT AUTO 61.2 % (42.2-75.2); PLATELET COUNT,PLT 266 10^3/uL (150-450); RED BLOOD CELL COUNT 4.66 10^6/uL (4.6-6.2); WHITE BLOOD CELL COUNT,WBC 10.9 10^3/uL (5.0-10.0)
[2023-02-18 20:34] LABS: A/G RATIO 1.1; ALBUMIN 3.6 g/dL (3.4-5.0); ANION GAP 15.2 mEq/L (7-13); BILIRUBIN TOTAL 0.4 mg/dL (0.2-1.0); BUN/CREATININE RATIO 9.8 (No establ ref range); CREATININE 1.12 mg/dL (0.70-1.30); EST CRCL DRUG DOSING (CG) 94.69 mL/min; POTASSIUM,K 3.2 mmol/L (3.5-5.1)
[2023-02-18] MEDS ORDERED: Sodium Chloride 0.9% 1,000 ML IV ONE (20:40)
[2023-02-18] MEDS ORDERED: 50% Dextrose in Water 50 ML Syringe IVPUSH PRN (20:45)
[2023-02-18] MEDS ORDERED: Insulin NPH HUM/REG Insulin HM 100 UNIT/ML 3 ML Vial SQ ONE (20:45)
[2023-02-18] MEDS ORDERED: Glucagon,Human Recombinant 1 MG Vial IM PRN (20:45)
[2023-02-18] MEDS ORDERED: Insulin Regular, Human 100 Units/ML 3 ML Vial IV ONE (21:01)
== END 2023-02-18 22:30 ==
LOC: DL.ED 19:31
DX: L03.032 Cellulitis of left toe (principal); E10.65 Type 1 diabetes mellitus with hyperglycemia; B00.9 Herpesviral infection, unspecified; F17.210 Nicotine dependence, cigarettes, uncomplicated; Z79.4 Long term (current) use of insulin; Z79.899 Other long term (current) drug therapy; Z88.8 Allergy status to other drugs, medicaments and biological substances
CPT/HCPCS: 36415; 73660-TA; 80053; 82947; 85025; 96361; 96374; 99284; 99285-25; A9270-GY; J0696; J1815-GY; J3490; J7030

== ENCOUNTER 2023-06-16 21:59 | Emergency (ER) | payer SELFPAY ==
[2023-06-16] MEDS ORDERED: Insulin Lispro 100 Units/ML 3 ML Vial SUBCUT ONE ×3 (22:02→23:34)
[2023-06-16] MEDS ORDERED: 50% Dextrose in Water 50 ML Syringe IVPUSH PRN ×3 (22:22→23:34)
[2023-06-16] MEDS ORDERED: Glucagon,Human Recombinant 1 MG Vial IM PRN ×3 (22:22→23:34)
[2023-06-16 22:28] LABS: APPEARANCE,URINE CLEAR (CLEAR); BILIRUBIN,URINE NEGATIVE (NEGATIVE); COLOR,URINE YELLOW (YELLOW); GLUCOSE,URINE 500 (NEGATIVE); KETONES,URINE NEGATIVE (NEGATIVE); LEUKOCYTE ESTERASE,URINE NEGATIVE (NEGATIVE); NITRITE,URINE NEGATIVE (NEGATIVE); OCCULT BLOOD,URINE NEGATIVE (NEGATIVE); PH,URINE 5.5 (5.0-9.0); PROTEIN,URINE NEGATIVE (NEGATIVE); UROBILINOGEN,URINE 0.2 mg/dL (0.2-1.0)
[2023-06-16 22:34] LABS: METHAMPHETAMINES,URINE NEGATIVE (NEGATIVE)
[2023-06-16 22:35] LABS: AMPHETAMINES,URINE NEGATIVE (NEGATIVE); BARBITURATES,URINE NEGATIVE (NEGATIVE); BENZODIAZEPINE,URINE NEGATIVE (NEGATIVE); MDMA (ECSTASY), URINE NEGATIVE (NEGATIVE); METHADONE,URINE NEGATIVE (NEGATIVE); OPIATES,URINE NEGATIVE (NEGATIVE); OXYCODONE,URINE NEGATIVE (NEGATIVE); PHENCYCLIDINE,URINE NEGATIVE (NEGATIVE); TCA,URINE NEGATIVE (NEGATIVE)
[2023-06-16 22:36] LABS: HEMATOCRIT 45.8 % (40.0-54.0); HEMOGLOBIN 15.2 g/dL (14.0-18.0); MEAN CORPUSCULAR HEMOGLOBIN 31.7 pg (27.0-34.0); MEAN CORPUSCULAR HGB CONC 33.2 g/dL (33.0-35.0); MEAN CORPUSCULAR VOLUME 95.6 fL (80-100); PLATELET COUNT,PLT 282 10^3/uL (150-450); RED BLOOD CELL COUNT 4.79 10^6/uL (4.6-6.2); WHITE BLOOD CELL COUNT,WBC 16.1 10^3/uL (5.0-10.0)
[2023-06-16 22:40] LABS: BASOPHILS PERCENT AUTO 1.1 % (0.0-1.0); EOSINOPHILS PERCENT AUTO 0.9 % (1.0-3.0); LYMPHOCYTES PERCENT AUTO 16.2 % (20.5-50.1); MONOCYTES PERCENT AUTO 6.3 % (2-8); NEUTROPHILS PERCENT AUTO 75.5 % (42.2-75.2)
[2023-06-16 22:51] LABS: LYMPHOCYTES PERCENT MAN 17 % (20-50); MONOCYTES PERCENT MAN 4 % (2-8); SEG NEUTROPHILS PERCENT MAN 79 % (42-75)
[2023-06-16 22:55] LABS: A/G RATIO 1.2; ALANINE AMINOTRANSFERASE,ALT 24 U/L (16-63); ALBUMIN 4.5 g/dL (3.4-5.0); ALKALINE PHOSPHATASE 122 U/L (46-116); ANION GAP 21.7 mEq/L (7-13); ASPARTATE AMNIOTRANSFERASE,AST 11 U/L (15-37); BILIRUBIN TOTAL 0.4 mg/dL (0.2-1.0); BLOOD UREA NITROGEN,BUN 12 mg/dL (7-18); BUN/CREATININE RATIO 9.1 (No establ ref range); CARBON DIOXIDE,CO2 19 mmol/L (21-32); CHLORIDE,CL 92 mmol/L (98-107); CREATININE 1.32 mg/dL (0.70-1.30); ETHANOL BLOOD MEDICAL 138 mg/dL (0); POTASSIUM,K 4.7 mmol/L (3.5-5.1); PROTEIN TOTAL,TP 8.3 g/dL (6.4-8.2); SODIUM,NA 128 mmol/L (136-145)
[2023-06-16 22:56] LABS: ESTIMATED GFR 74 mL/min (>=60); GLUCOSE RANDOM 831 mg/dL (70-99)
== END 2023-06-17 00:16 ==
LOC: DL.ED 21:59
DX: E10.65 Type 1 diabetes mellitus with hyperglycemia (principal); F10.10 Alcohol abuse, uncomplicated; Z90.49 Acquired absence of other specified parts of digestive tract; Z79.4 Long term (current) use of insulin; Z88.8 Allergy status to other drugs, medicaments and biological substances
CPT/HCPCS: 36415; 80053; 80305; 80307; 81003; 82947; 85025; 99283; 99285; J1815

== ENCOUNTER 2023-10-04 17:38 | Emergency (ER) | payer SELFPAY ==
[2023-10-04] MEDS: Lidocaine 2% 20 ML MDV ONE (18:36)
[2023-10-04] MEDS: Amoxicillin/Clavulanate K 875-125 MG Tab PO ONE (18:36)
== END 2023-10-04 18:48 | disposition home or self-care (01) ==
LOC: DL.ED 17:38
DX: H66.93 Otitis media, unspecified, bilateral (principal); E10.9 Type 1 diabetes mellitus without complications; F17.210 Nicotine dependence, cigarettes, uncomplicated; Z88.8 Allergy status to other drugs, medicaments and biological substances; Z79.4 Long term (current) use of insulin; Z79.899 Other long term (current) drug therapy
CPT/HCPCS: 99282; A9270-GY; J3490

== ENCOUNTER 2024-01-13 08:28 | Emergency (ER) | payer SELFPAY ==
[2024-01-13] MEDS: Ondansetron 4 MG/2 ML SDV IVPUSH ONE (08:54)
[2024-01-13] MEDS: Metoclopramide 10 MG/2 ML SDV IVPUSH ONE (09:17)
[2024-01-13] MEDS: LORazepam 2 MG/ML SDV IVPUSH ONE (09:19)
[2024-01-13 09:22] LABS: EOSINOPHILS PERCENT AUTO 1.6 % (1.0-3.0); HEMATOCRIT 50.1 % (40.0-54.0); HEMOGLOBIN 18.1 g/dL (14.0-18.0); LYMPHOCYTES PERCENT AUTO 23.1 % (20.5-50.1); MEAN CORPUSCULAR HEMOGLOBIN 31.9 pg (27.0-34.0); MEAN CORPUSCULAR HGB CONC 36.1 g/dL (33.0-35.0); MEAN CORPUSCULAR VOLUME 88.4 fL (80-100); MONOCYTES PERCENT AUTO 6.4 % (2-8); NEUTROPHILS PERCENT AUTO 67.9 % (42.2-75.2); PLATELET COUNT,PLT 311 10^3/uL (150-450); RED BLOOD CELL COUNT 5.67 10^6/uL (4.6-6.2); WHITE BLOOD CELL COUNT,WBC 12.7 10^3/uL (5.0-10.0)
[2024-01-13 09:27] LABS: KETONES,BLOOD NEGATIVE
[2024-01-13 09:33] LABS: ALANINE AMINOTRANSFERASE,ALT 28 U/L (16-63); ALBUMIN 5.1 g/dL (3.4-5.0); ALKALINE PHOSPHATASE 102 U/L (46-116); AMYLASE 61 U/L (25-115); ASPARTATE AMNIOTRANSFERASE,AST 13 U/L (15-37); BLOOD UREA NITROGEN,BUN 16 mg/dL (7-18); BUN/CREATININE RATIO 14.8 (No establ ref range); CARBON DIOXIDE,CO2 20 mmol/L (21-32); CHLORIDE,CL 99 mmol/L (98-107); CREATININE 1.08 mg/dL (0.70-1.30); EST CRCL DRUG DOSING (CG) 97.29 mL/min; GLUCOSE RANDOM 259 mg/dL (70-99); LIPASE 61 U/L (16-77); MAGNESIUM 1.7 mg/dL (1.8-2.4); PROTEIN TOTAL,TP 8.5 g/dL (6.4-8.2); SODIUM,NA 137 mmol/L (136-145)
[2024-01-13 09:36] LABS: ESTIMATED GFR 93 mL/min (>=60)
[2024-01-13 09:37] LABS: ETHANOL BLOOD MEDICAL < 3 mg/dL (0)
[2024-01-13 09:38] LABS: LACTIC ACID 2.7 mmol/L (0.4-2.0)
[2024-01-13 09:48] LABS: O2 DELIVERY DEVICE ROOM AIR
[2024-01-13 09:51] LABS: PCO2 VENOUS 42 mmHg (41-51); PH,VENOUS 7.34 (7.31-7.41)
[2024-01-13 09:52] LABS: BASE EXCESS VENOUS -3.7 mmol/l ((-2)-(+3)); BICARBONATE,VENOUS 22 mmol/l (19-25); O2 SATURATION VENOUS 90.3 % (60-80); PO2 VENOUS 63 mmHg (35-42)
[2024-01-13] MEDS: Sodium Chloride 0.9% 1,000 ML IV ONE (10:05)
[2024-01-13] MEDS: Magnesium Sulfate/Water 2 GM in Premix Bag 1 BAG IV ONE (10:05)
== END 2024-01-13 12:13 | disposition home or self-care (01) ==
LOC: DL.ED 08:28
DX: R11.2 Nausea with vomiting, unspecified (principal); F12.10 Cannabis abuse, uncomplicated; E10.10 Type 1 diabetes mellitus with ketoacidosis without coma; Z88.8 Allergy status to other drugs, medicaments and biological substances; Z79.4 Long term (current) use of insulin; Z79.899 Other long term (current) drug therapy
CPT/HCPCS: 36415; 80053; 80307; 82009; 82150; 82803; 82947; 83605; 83690; 83735; 85025; 93005; 96361; 96365; 96375; 99284; J2060; J2405; J2765; J3475; J7030

== ENCOUNTER 2024-03-18 08:49 | Emergency (ER) | payer SELFPAY ==
[2024-03-18] MEDS: Sodium Chloride 0.9% 10 ML Syringe FLUSH PRN (09:12)
[2024-03-18] MEDS: Sodium Chloride 0.9% 1,000 ML IV ONE ×2 (09:12→09:44)
[2024-03-18] MEDS: Ondansetron 4 MG/2 ML SDV IVPUSH ONE ×2 (09:12→10:38)
[2024-03-18 09:15] LABS: BASOPHILS PERCENT AUTO 1.2 % (0.0-1.0); EOSINOPHILS PERCENT AUTO 5.6 % (1.0-3.0); HEMATOCRIT 50.4 % (40.0-54.0); HEMOGLOBIN 17.8 g/dL (14.0-18.0); LYMPHOCYTES PERCENT AUTO 25.4 % (20.5-50.1); MEAN CORPUSCULAR HEMOGLOBIN 31.8 pg (27.0-34.0); MEAN CORPUSCULAR HGB CONC 35.3 g/dL (33.0-35.0); MEAN CORPUSCULAR VOLUME 90.2 fL (80-100); MONOCYTES PERCENT AUTO 5.2 % (2-8); NEUTROPHILS PERCENT AUTO 62.6 % (42.2-75.2); PLATELET COUNT,PLT 311 10^3/uL (150-450); RED BLOOD CELL COUNT 5.59 10^6/uL (4.6-6.2); WHITE BLOOD CELL COUNT,WBC 12.8 10^3/uL (5.0-10.0)
[2024-03-18 09:35] LABS: A/G RATIO 1.24; ALANINE AMINOTRANSFERASE,ALT 21 U/L (16-63); ALBUMIN 5.2 g/dL (3.4-5.0); ALKALINE PHOSPHATASE 112 U/L (46-116); ANION GAP 18.8 mEq/L (7-13); ASPARTATE AMNIOTRANSFERASE,AST 18 U/L (15-37); BILIRUBIN TOTAL 0.9 mg/dL (0.2-1.0); BLOOD UREA NITROGEN,BUN 16 mg/dL (7-18); BUN/CREATININE RATIO 12.3 (No establ ref range); C-REACTIVE PROTEIN < 0.50 ng/dL (<=0.50); CARBON DIOXIDE,CO2 26 mmol/L (21-32); CHLORIDE,CL 98 mmol/L (98-107); EST CRCL DRUG DOSING (CG) 80.82 mL/min; ESTIMATED GFR 74 mL/min (>=60); ETHANOL BLOOD MEDICAL < 3 mg/dL (0); GLUCOSE RANDOM 363 mg/dL (70-99); LIPASE 38 U/L (16-77); MAGNESIUM 2.1 mg/dL (1.8-2.4); POTASSIUM,K 3.8 mmol/L (3.5-5.1); PROTEIN TOTAL,TP 9.4 g/dL (6.4-8.2); SODIUM,NA 139 mmol/L (136-145)
[2024-03-18 09:39] LABS: LACTIC ACID 3.1 mmol/L (0.4-2.0)
[2024-03-18] MEDS: Haloperidol Lactate 5 MG/ML SDV IVPUSH PRN (09:47)
[2024-03-18 10:00] LABS: O2 DELIVERY DEVICE ROOM AIR; O2 SATURATION ARTERIAL 97 % (95-100); PCO2 ARTERIAL 47 mmHg (35-45); PH,ARTERIAL 7.33 (7.35-7.45); PO2 ARTERIAL 90 mmHg (70-100)
[2024-03-18 10:01] LABS: ALLEN TEST PERFORMED; BASE EXCESS ARTERIAL -2 mmol/L ((-2)-(+3)); BICARBONATE,ARTERIAL 23.8 mmol/L (22-26)
[2024-03-18] MEDS: Haloperidol Lactate 5 MG/ML SDV IVPUSH ONE (10:37)
[2024-03-18] MEDS: Metoclopramide 10 MG/2 ML SDV IVPUSH ONE (10:40)
[2024-03-18 12:05] LABS: A/G RATIO 1.2; ALBUMIN 4.2 g/dL (3.4-5.0); ANION GAP 14.1 mEq/L (7-13); BILIRUBIN TOTAL 0.6 mg/dL (0.2-1.0); CALCIUM 9.3 mg/dL (8.5-10.1); CREATININE 0.94 mg/dL (0.70-1.30); EST CRCL DRUG DOSING (CG) 111.77 mL/min; POTASSIUM,K 4.1 mmol/L (3.5-5.1); PROTEIN TOTAL,TP 7.6 g/dL (6.4-8.2)
== END 2024-03-18 12:27 | disposition home or self-care (01) ==
LOC: DL.ED 08:49
DX: R11.2 Nausea with vomiting, unspecified (principal); E87.20 Acidosis, unspecified; E10.9 Type 1 diabetes mellitus without complications; Z79.4 Long term (current) use of insulin; Z88.8 Allergy status to other drugs, medicaments and biological substances
CPT/HCPCS: 36415; 36600; 80053; 80307; 82803; 82947; 83605; 83690; 83735; 85025; 86140; 87804; 96374; 96375; 96376; 99284; 99284-25; J1630; J2405; J2765; J3490; J7030; U0002

== ENCOUNTER 2024-03-21 12:50 | Observation (INO) | payer MEDICAID ==
[2024-03-21] MEDS ORDERED: Albuterol/Ipratropium 3.0-0.5 MG/3 ML Neb Soln NEB PRN (12:55)
[2024-03-21] MEDS ORDERED: HYDROmorphone 0.5 MG/0.5 ML Syringe IVPUSH PRN (12:55)
[2024-03-21] MEDS ORDERED: Sodium Chloride 0.9% 10 ML Syringe FLUSH PRN (12:55)
[2024-03-21] MEDS ORDERED: Naloxone 2 MG/2 ML Syringe IVPUSH PRN (12:55)
[2024-03-21] MEDS ORDERED: Acetaminophen/oxyCODONE 325-5 MG Tab PO PRN (12:55)
[2024-03-21] MEDS ORDERED: 50% Dextrose in Water 50 ML Syringe IVPUSH PRN (12:59)
[2024-03-21] MEDS ORDERED: Glucagon,Human Recombinant 1 MG Vial IM PRN (12:59)
[2024-03-21 13:33] LABS: HEMOGLOBIN A1C 8.5 % (<5.7)
[2024-03-21 13:39] LABS: ANION GAP 17.1 mEq/L (7-13); POTASSIUM,K 4.1 mmol/L (3.5-5.1)
[2024-03-21] MEDS: Scopalamine 1mg/3day Transdermal Patch TOP ONE (14:16)
[2024-03-21] MEDS: Insulin Glarg,Human.Rec.Analog 100 Unit/ML 10 ML Vial SUBCUT ONE ×2 (14:17→14:29)
[2024-03-21] MEDS: Insulin Lispro 100 Units/ML 3 ML Vial SUBCUT SCH ×3 (14:18→14:30)
[2024-03-21 14:19] LABS: APPEARANCE,URINE CLEAR (CLEAR); BILIRUBIN,URINE NEGATIVE (NEGATIVE); COLOR,URINE YELLOW (YELLOW); GLUCOSE,URINE 500 (NEGATIVE); KETONES,URINE 80 (NEGATIVE); LEUKOCYTE ESTERASE,URINE NEGATIVE (NEGATIVE); NITRITE,URINE NEGATIVE (NEGATIVE); OCCULT BLOOD,URINE NEGATIVE (NEGATIVE); PROTEIN,URINE TRACE (NEGATIVE); UROBILINOGEN,URINE 0.2 mg/dL (0.2-1.0)
[2024-03-21 14:24] LABS: AMPHETAMINES,URINE NEGATIVE (NEGATIVE); BARBITURATES,URINE NEGATIVE (NEGATIVE); BENZODIAZEPINE,URINE NEGATIVE (NEGATIVE); MDMA (ECSTASY), URINE NEGATIVE (NEGATIVE); METHADONE,URINE NEGATIVE (NEGATIVE); METHAMPHETAMINES,URINE NEGATIVE (NEGATIVE); OPIATES,URINE NEGATIVE (NEGATIVE); OXYCODONE,URINE NEGATIVE (NEGATIVE); PHENCYCLIDINE,URINE NEGATIVE (NEGATIVE); TCA,URINE NEGATIVE (NEGATIVE)
[2024-03-21] MEDS: Lactated Ringers 2,000 ML IV SCH (14:24)
[2024-03-21 14:27] LABS: BACTERIA,URINE RARE /HPF (0-FEW/HPF); EPITHELIAL CELLS,URINE OCCASIONAL /HPF (NOT SEEN); MUCUS,URINE RARE /LPF (NOT SEEN); RBC,URINE NOT SEEN /HPF (0-5); WBC,URINE NOT SEEN /HPF (0-5/HPF)
[2024-03-21] MEDS: Acetaminophen 325 MG Tab PO PRN (14:55)
[2024-03-21] MEDS: Capsaicin 0.025% Crm 60 GM Tube TOP SCH (14:55)
[2024-03-21] MEDS: Dexamethasone 4 MG/ML SDV IVPUSH ONE (15:24)
[2024-03-21] MEDS: diphenhydrAMINE 50 MG/ML SDV IVPUSH ONE (15:25)
[2024-03-21] MEDS: Metoclopramide 10 MG/2 ML SDV IV PRN (16:15)
[2024-03-21] MEDS: Dextrose 5%-0.9% NaCl 1,000 ML IV SCH (18:20)
[2024-03-21 18:22] LABS: ANION GAP 15.1 mEq/L (7-13); CALCIUM 9.3 mg/dL (8.5-10.1); CREATININE 0.91 mg/dL (0.70-1.30); EST CRCL DRUG DOSING (CG) 115.46 mL/min; MAGNESIUM 1.9 mg/dL (1.8-2.4); POTASSIUM,K 4.1 mmol/L (3.5-5.1)
[2024-03-21] MEDS: Check Patch TRDERM SCH (20:19)
[2024-03-21] MEDS: Sodium Chloride 0.9% 10 ML Syringe FLUSH SCH (20:20)
[2024-03-21] MEDS: Temazepam 15 MG Cap PO PRN (20:20)
[2024-03-21] MEDS: LORazepam 2 MG/ML SDV IVPUSH ONE (21:48)
[2024-03-22 06:22] LABS: BASOPHILS PERCENT AUTO 0.8 % (0.0-1.0); EOSINOPHILS PERCENT AUTO 0.7 % (1.0-3.0); HEMATOCRIT 43.1 % (40.0-54.0); HEMOGLOBIN 15.4 g/dL (14.0-18.0); LYMPHOCYTES PERCENT AUTO 32.6 % (20.5-50.1); MEAN CORPUSCULAR HEMOGLOBIN 31.6 pg (27.0-34.0); MEAN CORPUSCULAR HGB CONC 35.7 g/dL (33.0-35.0); MEAN CORPUSCULAR VOLUME 88.5 fL (80-100); MONOCYTES PERCENT AUTO 8.6 % (2-8); NEUTROPHILS PERCENT AUTO 57.3 % (42.2-75.2); PLATELET COUNT,PLT 254 10^3/uL (150-450); RED BLOOD CELL COUNT 4.87 10^6/uL (4.6-6.2); WHITE BLOOD CELL COUNT,WBC 10.5 10^3/uL (5.0-10.0)
[2024-03-22 06:44] LABS: A/G RATIO 1.2; ALBUMIN 3.8 g/dL (3.4-5.0); ANION GAP 12.4 mEq/L (7-13); BILIRUBIN TOTAL 1.2 mg/dL (0.2-1.0); CALCIUM 8.9 mg/dL (8.5-10.1); CREATININE 0.88 mg/dL (0.70-1.30); EST CRCL DRUG DOSING (CG) 119.4 mL/min; POTASSIUM,K 3.4 mmol/L (3.5-5.1); PROTEIN TOTAL,TP 6.9 g/dL (6.4-8.2)
[2024-03-22] MEDS: Potassium Chloride 10 MEQ Tab.ER PO SCH (08:01)
[2024-03-22] MEDS: Metoclopramide 10 MG/2 ML SDV IVPUSH ONE (08:01)
[2024-03-22] MEDS: Insulin Glarg,Human.Rec.Analog 100 Unit/ML 10 ML Vial SUBCUT SCH (08:07)
[2024-03-22] MEDS: Insulin Lispro 100 Units/ML 3 ML Vial SUBCUT SCH (08:11)
== END 2024-03-22 16:44 | disposition home or self-care (01) ==
LOC: DL.MS 12:50
PROVIDERS: ADMIT Internal Medicine; ATTEND Internal Medicine
DX: E10.10 Type 1 diabetes mellitus with ketoacidosis without coma (principal); E10.65 Type 1 diabetes mellitus with hyperglycemia; R11.2 Nausea with vomiting, unspecified; E87.6 Hypokalemia; F12.90 Cannabis use, unspecified, uncomplicated; G47.00 Insomnia, unspecified; E87.1 Hypo-osmolality and hyponatremia; E87.8 Other disorders of electrolyte and fluid balance, not elsewhere classified; Z72.0 Tobacco use; Z79.4 Long term (current) use of insulin; Z79.899 Other long term (current) drug therapy; Z88.8 Allergy status to other drugs, medicaments and biological substances; Z91.030 Bee allergy status
CPT/HCPCS: 36415; 80048; 80051; 80053; 80305-QW; 81001; 82947; 83036; 83735; 85025; 86140; 96361; 96374; 96375; 96376; 99223; 99238; A9270-GY; G0378; G0379; J1100; J1200; J1815-GY; J2060; J2765; J3490; J7042; J7120

== ENCOUNTER 2024-04-13 19:05 | Emergency (ER) | payer SELFPAY ==
[2024-04-13] MEDS: predniSONE 20 MG Tab PO ONE (20:15)
== END 2024-04-13 20:22 | disposition home or self-care (01) ==
LOC: DL.ED 19:05
DX: M77.9 Enthesopathy, unspecified (principal); E10.9 Type 1 diabetes mellitus without complications; Z91.030 Bee allergy status; Z88.8 Allergy status to other drugs, medicaments and biological substances; Z79.4 Long term (current) use of insulin; Z79.899 Other long term (current) drug therapy; Z90.49 Acquired absence of other specified parts of digestive tract; Z87.891 Personal history of nicotine dependence
CPT/HCPCS: 73140-F9; 99283; 99284; J7512

== ENCOUNTER 2024-05-31 12:59 | Emergency (ER) | payer SELFPAY ==
[2024-05-31] MEDS ORDERED: Sodium Chloride 0.9% 1,000 ML IV ONE (13:22)
[2024-05-31] MEDS: Haloperidol Lactate 5 MG/ML SDV IM ONE (13:34)
[2024-05-31 13:40] LABS: BASOPHILS PERCENT AUTO 0.7 % (0.0-1.0); EOSINOPHILS PERCENT AUTO 0.2 % (1.0-3.0); HEMATOCRIT 45.8 % (40.0-54.0); HEMOGLOBIN 16.2 g/dL (14.0-18.0); LYMPHOCYTES PERCENT AUTO 10.7 % (20.5-50.1); MEAN CORPUSCULAR HEMOGLOBIN 31.6 pg (27.0-34.0); MEAN CORPUSCULAR HGB CONC 35.4 g/dL (33.0-35.0); MEAN CORPUSCULAR VOLUME 89.3 fL (80-100); MONOCYTES PERCENT AUTO 5.1 % (2-8); NEUTROPHILS PERCENT AUTO 83.3 % (42.2-75.2); PLATELET COUNT,PLT 290 10^3/uL (150-450); RED BLOOD CELL COUNT 5.13 10^6/uL (4.6-6.2)
[2024-05-31 13:42] LABS: O2 DELIVERY DEVICE ROOM AIR; O2 SATURATION VENOUS 50.3 % (60-80); PCO2 VENOUS 41 mmHg (41-51); PH,VENOUS 7.37 (7.31-7.41); PO2 VENOUS 31 mmHg (35-42)
[2024-05-31 13:43] LABS: BASE EXCESS VENOUS -1.5 mmol/l ((-2)-(+3)); BICARBONATE,VENOUS 23 mmol/l (19-25)
[2024-05-31 14:05] LABS: A/G RATIO 1.1; ALBUMIN 4.7 g/dL (3.4-5.0); ANION GAP 21.6 mEq/L (7-13); BILIRUBIN TOTAL 0.6 mg/dL (0.2-1.0); BUN/CREATININE RATIO 17.4 (No establ ref range); CALCIUM 10.5 mg/dL (8.5-10.1); CREATININE 1.15 mg/dL (0.70-1.30); EST CRCL DRUG DOSING (CG) 91.36 mL/min; POTASSIUM,K 3.6 mmol/L (3.5-5.1); PROTEIN TOTAL,TP 8.8 g/dL (6.4-8.2)
== END 2024-05-31 15:19 | disposition left against medical advice (07) ==
LOC: DL.ED 12:59
DX: R11.2 Nausea with vomiting, unspecified (principal); F12.10 Cannabis abuse, uncomplicated; E10.9 Type 1 diabetes mellitus without complications; Z90.49 Acquired absence of other specified parts of digestive tract; Z88.6 Allergy status to analgesic agent; Z88.8 Allergy status to other drugs, medicaments and biological substances; Z91.030 Bee allergy status; Z79.4 Long term (current) use of insulin; Z79.899 Other long term (current) drug therapy
CPT/HCPCS: 36415; 80053; 82803; 82947; 83735; 85025; 96372; 99284; J1630

== ENCOUNTER 2024-06-01 04:30 | Emergency (ER) | payer SELFPAY ==
[2024-06-01] MEDS: Sodium Chloride 0.9% 1,000 ML IV ONE ×3 (05:17→18:50)
[2024-06-01 05:22] LABS: O2 DELIVERY DEVICE ROOM AIR
[2024-06-01 05:28] LABS: BASOPHILS PERCENT AUTO 0.3 % (0.0-1.0); EOSINOPHILS PERCENT AUTO 0.1 % (1.0-3.0); HEMATOCRIT 43.4 % (40.0-54.0); HEMOGLOBIN 15.3 g/dL (14.0-18.0); LYMPHOCYTES PERCENT AUTO 10.2 % (20.5-50.1); MEAN CORPUSCULAR HEMOGLOBIN 31.5 pg (27.0-34.0); MEAN CORPUSCULAR HGB CONC 35.3 g/dL (33.0-35.0); MEAN CORPUSCULAR VOLUME 89.5 fL (80-100); MONOCYTES PERCENT AUTO 4.2 % (2-8); NEUTROPHILS PERCENT AUTO 85.2 % (42.2-75.2); PLATELET COUNT,PLT 242 10^3/uL (150-450); RED BLOOD CELL COUNT 4.85 10^6/uL (4.6-6.2); WHITE BLOOD CELL COUNT,WBC 17.3 10^3/uL (5.0-10.0)
[2024-06-01 05:38] LABS: BASE EXCESS VENOUS -1.7 mmol/l ((-2)-(+3)); BICARBONATE,VENOUS 22 mmol/l (19-25); O2 SATURATION VENOUS 87.5 % (60-80); PCO2 VENOUS 37 mmHg (41-51); PO2 VENOUS 56 mmHg (35-42)
[2024-06-01 05:58] LABS: A/G RATIO 1.1; ALANINE AMINOTRANSFERASE,ALT 29 U/L (16-63); ALBUMIN 4.1 g/dL (3.4-5.0); ALKALINE PHOSPHATASE 90 U/L (46-116); ANION GAP 19.6 mEq/L (7-13); ASPARTATE AMNIOTRANSFERASE,AST 15 U/L (15-37); BILIRUBIN TOTAL 0.8 mg/dL (0.2-1.0); BLOOD UREA NITROGEN,BUN 24 mg/dL (7-18); BUN/CREATININE RATIO 21.8 (No establ ref range); CALCIUM 9.7 mg/dL (8.5-10.1); CARBON DIOXIDE,CO2 24 mmol/L (21-32); CHLORIDE,CL 94 mmol/L (98-107); EST CRCL DRUG DOSING (CG) 95.52 mL/min; ESTIMATED GFR 91 mL/min (>=60); ETHANOL BLOOD MEDICAL < 3 mg/dL (0); GLUCOSE RANDOM 333 mg/dL (70-99); MAGNESIUM 1.6 mg/dL (1.8-2.4); POTASSIUM,K 3.6 mmol/L (3.5-5.1); SODIUM,NA 134 mmol/L (136-145)
[2024-06-01 06:08] LABS: LACTIC ACID 1.5 mmol/L (0.4-2.0)
[2024-06-01] MEDS: Magnesium Sulfate/Water Premix 2 GM in Premix Bag 1 BAG IV ONE (07:15)
[2024-06-01 07:32] LABS: APPEARANCE,URINE CLEAR (CLEAR); BILIRUBIN,URINE NEGATIVE (NEGATIVE); COLOR,URINE YELLOW (YELLOW); GLUCOSE,URINE >=1000 (NEGATIVE); KETONES,URINE 80 (NEGATIVE); LEUKOCYTE ESTERASE,URINE NEGATIVE (NEGATIVE); NITRITE,URINE NEGATIVE (NEGATIVE); OCCULT BLOOD,URINE NEGATIVE (NEGATIVE); PROTEIN,URINE 30 (NEGATIVE); UROBILINOGEN,URINE 0.2 mg/dL (0.2-1.0)
[2024-06-01] MEDS: Acetaminophen 325 MG Tab PO ONE (07:36)
[2024-06-01] MEDS: cefTRIAXone 1 GM Vial IVPUSH ONE (07:36)
[2024-06-01 07:38] LABS: AMPHETAMINES,URINE NEGATIVE (NEGATIVE); BARBITURATES,URINE NEGATIVE (NEGATIVE); BENZODIAZEPINE,URINE NEGATIVE (NEGATIVE); MDMA (ECSTASY), URINE NEGATIVE (NEGATIVE); METHADONE,URINE NEGATIVE (NEGATIVE); METHAMPHETAMINES,URINE NEGATIVE (NEGATIVE); OPIATES,URINE NEGATIVE (NEGATIVE); OXYCODONE,URINE NEGATIVE (NEGATIVE); PHENCYCLIDINE,URINE NEGATIVE (NEGATIVE); TCA,URINE NEGATIVE (NEGATIVE)
[2024-06-01 08:30] LABS: BACTERIA,URINE OCCASIONAL /HPF (0-FEW/HPF); EPITHELIAL CELLS,URINE OCCASIONAL /HPF (NOT SEEN); MUCUS,URINE FEW /LPF (NOT SEEN); RBC,URINE NOT SEEN /HPF (0-5); WBC,URINE 0-5 /HPF (0-5/HPF)
== END 2024-06-01 09:35 | disposition home or self-care (01) ==
LOC: DL.ED 04:30
DX: E10.65 Type 1 diabetes mellitus with hyperglycemia (principal); D72.829 Elevated white blood cell count, unspecified; E86.0 Dehydration; E83.42 Hypomagnesemia; F17.210 Nicotine dependence, cigarettes, uncomplicated; Z90.49 Acquired absence of other specified parts of digestive tract; Z79.4 Long term (current) use of insulin; Z79.891 Long term (current) use of opiate analgesic; Z88.8 Allergy status to other drugs, medicaments and biological substances; Z91.030 Bee allergy status
CPT/HCPCS: 36415; 71045; 80053; 80305; 80307; 81001; 82803; 82947; 83605; 83735; 84484; 85025; 87040; 87428; 93005; 96361; 96365; 96366; 96375; 99285; A9270; J0696; J3475; J7030

== ENCOUNTER 2024-07-04 07:48 | Emergency (ER) | payer SELFPAY ==
[2024-07-04] MEDS: Sodium Chloride 0.9% 1,000 ML IV ONE (08:17)
[2024-07-04 08:21] LABS: BASOPHILS PERCENT AUTO 0.4 % (0.0-1.0); HEMOGLOBIN 15.3 g/dL (14.0-18.0); LYMPHOCYTES PERCENT AUTO 9.1 % (20.5-50.1); MEAN CORPUSCULAR HEMOGLOBIN 31.4 pg (27.0-34.0); MEAN CORPUSCULAR HGB CONC 35.6 g/dL (33.0-35.0); MEAN CORPUSCULAR VOLUME 88.1 fL (80-100); NEUTROPHILS PERCENT AUTO 85.5 % (42.2-75.2); PLATELET COUNT,PLT 272 10^3/uL (150-450); RED BLOOD CELL COUNT 4.88 10^6/uL (4.6-6.2); WHITE BLOOD CELL COUNT,WBC 16.7 10^3/uL (5.0-10.0)
[2024-07-04 08:30] LABS: O2 DELIVERY DEVICE ROOM AIR
[2024-07-04 08:41] LABS: PH,VENOUS 7.42 (7.31-7.41)
[2024-07-04 08:42] LABS: A/G RATIO 1.2; ALANINE AMINOTRANSFERASE,ALT 20 U/L (16-63); ALBUMIN 4.9 g/dL (3.4-5.0); ALKALINE PHOSPHATASE 101 U/L (46-116); ANION GAP 22.1 mEq/L (7-13); ASPARTATE AMNIOTRANSFERASE,AST 6 U/L (15-37); BILIRUBIN TOTAL 0.9 mg/dL (0.2-1.0); BLOOD UREA NITROGEN,BUN 27 mg/dL (7-18); BUN/CREATININE RATIO 13.4 (No establ ref range); CALCIUM 10.7 mg/dL (8.5-10.1); CARBON DIOXIDE,CO2 24 mmol/L (21-32); CHLORIDE,CL 88 mmol/L (98-107); CREATININE 2.02 mg/dL (0.70-1.30); EST CRCL DRUG DOSING (CG) 52.01 mL/min; LIPASE 19 U/L (16-77); MAGNESIUM 1.9 mg/dL (1.8-2.4); PHOSPHORUS 5.6 mg/dL (2.6-4.7); POTASSIUM,K 3.1 mmol/L (3.5-5.1); PROTEIN TOTAL,TP 8.9 g/dL (6.4-8.2); SODIUM,NA 131 mmol/L (136-145)
[2024-07-04 08:42] LABS: BICARBONATE,VENOUS 26 mmol/l (19-25); O2 SATURATION VENOUS 82.4 % (60-80); PCO2 VENOUS 41 mmHg (41-51); PO2 VENOUS 56 mmHg (35-42)
[2024-07-04 08:43] LABS: BASE EXCESS VENOUS 1.6 mmol/l ((-2)-(+3))
[2024-07-04 08:46] LABS: ESTIMATED GFR 44 mL/min (>=60); GLUCOSE RANDOM 533 mg/dL (70-99); KETONES,BLOOD NEGATIVE
[2024-07-04] MEDS: Insulin Lispro 100 Units/ML 3 ML Vial SUBCUT ONE (09:19)
[2024-07-04] MEDS: Lactated Ringers 1,000 ML IV ONE (09:21)
[2024-07-04 09:52] LABS: APPEARANCE,URINE CLEAR (CLEAR); BILIRUBIN,URINE NEGATIVE (NEGATIVE); COLOR,URINE YELLOW (YELLOW); GLUCOSE,URINE 500 (NEGATIVE); KETONES,URINE NEGATIVE (NEGATIVE); LEUKOCYTE ESTERASE,URINE NEGATIVE (NEGATIVE); NITRITE,URINE NEGATIVE (NEGATIVE); OCCULT BLOOD,URINE NEGATIVE (NEGATIVE); PH,URINE 5.5 (5.0-9.0); PROTEIN,URINE NEGATIVE (NEGATIVE); UROBILINOGEN,URINE 0.2 mg/dL (0.2-1.0)
[2024-07-04] MEDS: Potassium Chloride 10 MEQ Tab.ER PO ONE (10:04)
[2024-07-04] MEDS: Magnesium Oxide 400 MG Tab PO STA (10:04)
== END 2024-07-04 10:30 | disposition home or self-care (01) ==
LOC: DL.ED 07:48
DX: E10.65 Type 1 diabetes mellitus with hyperglycemia (principal); Z90.49 Acquired absence of other specified parts of digestive tract; Z88.8 Allergy status to other drugs, medicaments and biological substances; Z91.030 Bee allergy status; Z79.4 Long term (current) use of insulin; Z79.899 Other long term (current) drug therapy
CPT/HCPCS: 36415; 80053; 81003; 82009; 82803; 82947; 83690; 83735; 84100; 85025; 96360; 96361; 99283; 99284-25; A9270-GY; J1815-GY; J7030; J7120

== ENCOUNTER 2024-07-05 06:11 | Emergency (ER) | payer SELFPAY ==
[2024-07-05] MEDS: Metoclopramide 10 MG/2 ML SDV IVPUSH ONE (06:34)
[2024-07-05 06:36] LABS: BASOPHILS PERCENT AUTO 1.2 % (0.0-1.0); EOSINOPHILS PERCENT AUTO 1.6 % (1.0-3.0); HEMATOCRIT 41.9 % (40.0-54.0); HEMOGLOBIN 14.8 g/dL (14.0-18.0); LYMPHOCYTES PERCENT AUTO 29.3 % (20.5-50.1); MEAN CORPUSCULAR HEMOGLOBIN 31.6 pg (27.0-34.0); MEAN CORPUSCULAR HGB CONC 35.3 g/dL (33.0-35.0); MEAN CORPUSCULAR VOLUME 89.3 fL (80-100); MONOCYTES PERCENT AUTO 8.2 % (2-8); NEUTROPHILS PERCENT AUTO 59.7 % (42.2-75.2); PLATELET COUNT,PLT 255 10^3/uL (150-450); RED BLOOD CELL COUNT 4.69 10^6/uL (4.6-6.2); WHITE BLOOD CELL COUNT,WBC 12.1 10^3/uL (5.0-10.0)
[2024-07-05 06:50] LABS: A/G RATIO 1.2; ALANINE AMINOTRANSFERASE,ALT 25 U/L (16-63); ALBUMIN 4.4 g/dL (3.4-5.0); ALKALINE PHOSPHATASE 92 U/L (46-116); ANION GAP 14.3 mEq/L (7-13); ASPARTATE AMNIOTRANSFERASE,AST 10 U/L (15-37); BILIRUBIN TOTAL 1.1 mg/dL (0.2-1.0); BLOOD UREA NITROGEN,BUN 21 mg/dL (7-18); BUN/CREATININE RATIO 18.4 (No establ ref range); CALCIUM 9.5 mg/dL (8.5-10.1); CARBON DIOXIDE,CO2 27 mmol/L (21-32); CHLORIDE,CL 92 mmol/L (98-107); CREATININE 1.14 mg/dL (0.70-1.30); ESTIMATED GFR 87 mL/min (>=60); ETHANOL BLOOD MEDICAL < 3 mg/dL (0); GLUCOSE RANDOM 367 mg/dL (70-99); LIPASE 129 U/L (16-77); POTASSIUM,K 3.3 mmol/L (3.5-5.1); SODIUM,NA 130 mmol/L (136-145)
[2024-07-05] MEDS ORDERED: 50% Dextrose in Water 50 ML Syringe IVPUSH PRN (07:01)
[2024-07-05] MEDS ORDERED: Glucagon,Human Recombinant 1 MG Vial IM PRN (07:01)
[2024-07-05 07:09] LABS: APPEARANCE,URINE CLEAR (CLEAR); BILIRUBIN,URINE NEGATIVE (NEGATIVE); COLOR,URINE YELLOW (YELLOW); GLUCOSE,URINE 500 (NEGATIVE); KETONES,URINE TRACE (NEGATIVE); LEUKOCYTE ESTERASE,URINE NEGATIVE (NEGATIVE); NITRITE,URINE NEGATIVE (NEGATIVE); OCCULT BLOOD,URINE NEGATIVE (NEGATIVE); PROTEIN,URINE NEGATIVE (NEGATIVE); UROBILINOGEN,URINE 0.2 mg/dL (0.2-1.0)
[2024-07-05] MEDS: Sodium Chloride 0.9% 1,000 ML IV ONE (07:12)
[2024-07-05 07:14] LABS: AMPHETAMINES,URINE NEGATIVE (NEGATIVE); BARBITURATES,URINE NEGATIVE (NEGATIVE); BENZODIAZEPINE,URINE NEGATIVE (NEGATIVE); MDMA (ECSTASY), URINE NEGATIVE (NEGATIVE); METHADONE,URINE NEGATIVE (NEGATIVE); METHAMPHETAMINES,URINE NEGATIVE (NEGATIVE); OPIATES,URINE NEGATIVE (NEGATIVE); OXYCODONE,URINE NEGATIVE (NEGATIVE); PHENCYCLIDINE,URINE NEGATIVE (NEGATIVE); TCA,URINE NEGATIVE (NEGATIVE)
[2024-07-05] MEDS: Insulin Regular, Human 100 Units/ML 3 ML Vial IV ONE (07:54)
== END 2024-07-05 08:25 | disposition home or self-care (01) ==
LOC: DL.ED 06:11
DX: R07.89 Other chest pain (principal); R11.2 Nausea with vomiting, unspecified; E10.9 Type 1 diabetes mellitus without complications; Z90.49 Acquired absence of other specified parts of digestive tract; Z88.0 Allergy status to penicillin; Z91.030 Bee allergy status; Z79.4 Long term (current) use of insulin; Z79.899 Other long term (current) drug therapy
CPT/HCPCS: 71045; 80053; 80305; 80307; 81003; 82947; 83605; 83690; 84484; 85025; 87428; 93005; 93010; 96361; 96374; 99284; 99285; J2765; J7030

== ENCOUNTER 2024-07-16 23:08 | Emergency (ER) | payer SELFPAY ==
[2024-07-16] MEDS ORDERED: Sodium Chloride 0.9% 10 ML Syringe FLUSH PRN (23:45)
[2024-07-16 23:57] LABS: O2 DELIVERY DEVICE ROOM AIR
[2024-07-17] MEDS: Sodium Chloride 0.9% 1,000 ML IV ONE
[2024-07-17 00:02] LABS: HEMATOCRIT 50.4 % (40.0-54.0); HEMOGLOBIN 18.2 g/dL (14.0-18.0); MEAN CORPUSCULAR HEMOGLOBIN 31.5 pg (27.0-34.0); MEAN CORPUSCULAR HGB CONC 36.1 g/dL (33.0-35.0); MEAN CORPUSCULAR VOLUME 87.3 fL (80-100); PLATELET COUNT,PLT 388 10^3/uL (150-450); RED BLOOD CELL COUNT 5.77 10^6/uL (4.6-6.2); WHITE BLOOD CELL COUNT,WBC 26.2 10^3/uL (5.0-10.0)
[2024-07-17 00:05] LABS: BASOPHILS PERCENT AUTO 0.2 % (0.0-1.0); EOSINOPHILS PERCENT AUTO 0.1 % (1.0-3.0); LYMPHOCYTES PERCENT AUTO 6.5 % (20.5-50.1); MONOCYTES PERCENT AUTO 5.2 % (2-8)
[2024-07-17 00:08] LABS: BASE EXCESS VENOUS 0.2 mmol/l ((-2)-(+3)); BICARBONATE,VENOUS 23 mmol/l (19-25); O2 SATURATION VENOUS 92.7 % (60-80); PCO2 VENOUS 33 mmHg (41-51); PH,VENOUS 7.46 (7.31-7.41); PO2 VENOUS 69 mmHg (35-42)
[2024-07-17] MEDS: Ondansetron 4 MG/2 ML SDV IVPUSH ONE (00:23)
[2024-07-17 00:27] LABS: ALANINE AMINOTRANSFERASE,ALT 27 U/L (16-63); ALKALINE PHOSPHATASE 121 U/L (46-116); ASPARTATE AMNIOTRANSFERASE,AST 11 U/L (15-37); BILIRUBIN TOTAL 1.1 mg/dL (0.2-1.0); BLOOD UREA NITROGEN,BUN 27 mg/dL (7-18); BUN/CREATININE RATIO 6.6 (No establ ref range); CHLORIDE,CL 82 mmol/L (98-107); CREATININE 4.07 mg/dL (0.70-1.30); EST CRCL DRUG DOSING (CG) 25.82 mL/min; PROTEIN TOTAL,TP 10.4 g/dL (6.4-8.2)
[2024-07-17 00:34] LABS: CALCIUM 12.2 mg/dL (8.5-10.1); CARBON DIOXIDE,CO2 22 mmol/L (21-32); SODIUM,NA 125 mmol/L (136-145)
[2024-07-17 00:37] LABS: A/G RATIO 1.36; C-REACTIVE PROTEIN < 0.50 ng/dL (<=0.50); ESTIMATED GFR 19 mL/min (>=60); GLUCOSE RANDOM 523 mg/dL (70-99)
[2024-07-17 00:42] LABS: LYMPHOCYTES PERCENT MAN 5 % (20-50); MONOCYTES PERCENT MAN 3 % (2-8); SEG NEUTROPHILS PERCENT MAN 92 % (42-75)
[2024-07-17] MEDS ORDERED: Glucagon,Human Recombinant 1 MG Vial IM PRN (00:56)
[2024-07-17] MEDS ORDERED: 50% Dextrose in Water 50 ML Syringe IVPUSH PRN (00:56)
[2024-07-17] MEDS: Potassium Chloride 10 MEQ Tab.ER PO ONE (01:48)
[2024-07-17 03:25] LABS: APPEARANCE,URINE CLEAR (CLEAR); BILIRUBIN,URINE SMALL (NEGATIVE); COLOR,URINE DARK YELLOW (YELLOW); GLUCOSE,URINE 500 (NEGATIVE); KETONES,URINE 15 (NEGATIVE); LEUKOCYTE ESTERASE,URINE NEGATIVE (NEGATIVE); NITRITE,URINE NEGATIVE (NEGATIVE); OCCULT BLOOD,URINE NEGATIVE (NEGATIVE); PROTEIN,URINE 100 (NEGATIVE); UROBILINOGEN,URINE 0.2 mg/dL (0.2-1.0)
[2024-07-17 03:29] LABS: CALCIUM 11.6 mg/dL (8.5-10.1); CREATININE 3.83 mg/dL (0.70-1.30); EST CRCL DRUG DOSING (CG) 27.43 mL/min
[2024-07-17] MEDS: Lidocaine 2% Jelly 10 ML Urojet MUCMEM ONE (03:31)
[2024-07-17 03:38] LABS: AMORPHOUS SEDIMENT,URINE FEW /HPF (NOT SEEN); BACTERIA,URINE MODERATE /HPF (0-FEW/HPF); EPITHELIAL CELLS,URINE RARE /HPF (NOT SEEN); MUCUS,URINE MODERATE /LPF (NOT SEEN); RBC,URINE 0-5 /HPF (0-5); WBC,URINE 0-5 /HPF (0-5/HPF)
[2024-07-17 03:39] LABS: HYALINE CASTS,URINE FEW
[2024-07-17] MEDS ORDERED: Sodium Chloride 0.9% 1,000 ML IV SCH (04:00)
[2024-07-17 04:07] LABS: METHAMPHETAMINES,URINE NEGATIVE (NEGATIVE)
[2024-07-17 04:08] LABS: AMPHETAMINES,URINE NEGATIVE (NEGATIVE); BARBITURATES,URINE NEGATIVE (NEGATIVE); BENZODIAZEPINE,URINE NEGATIVE (NEGATIVE); MDMA (ECSTASY), URINE NEGATIVE (NEGATIVE); METHADONE,URINE NEGATIVE (NEGATIVE); OPIATES,URINE NEGATIVE (NEGATIVE); OXYCODONE,URINE NEGATIVE (NEGATIVE); PHENCYCLIDINE,URINE NEGATIVE (NEGATIVE); TCA,URINE NEGATIVE (NEGATIVE)
[2024-07-17] MEDS: Lactated Ringers 1,000 ML IV ONE (04:33)
[2024-07-17 05:35] LABS: ANION GAP 16.6 mEq/L (7-13); CALCIUM 10.7 mg/dL (8.5-10.1); CREATININE 3.3 mg/dL (0.70-1.30); EST CRCL DRUG DOSING (CG) 31.84 mL/min; POTASSIUM,K 3.6 mmol/L (3.5-5.1)
[2024-07-17] MEDS: Dextrose 5%-0.45% NaCl 1,000 ML IV SCH (06:02)
== END 2024-07-17 06:06 ==
LOC: DL.ED 23:08
DX: E13.10 Other specified diabetes mellitus with ketoacidosis without coma (principal); Z90.49 Acquired absence of other specified parts of digestive tract; Z88.8 Allergy status to other drugs, medicaments and biological substances; Z91.030 Bee allergy status; Z79.4 Long term (current) use of insulin; Z79.899 Other long term (current) drug therapy
CPT/HCPCS: 36415; 71045; 80048; 80053; 80305; 80307; 81001; 82550; 82803; 82947; 83605; 83690; 83735; 85025; 86140; 93005; 96361; 96374; 99285; A9270; C1758; J2405; J7030; J7120; J7799

== ENCOUNTER 2024-08-20 11:43 | Emergency (ER) | payer SELFPAY ==
[2024-08-20] MEDS ORDERED: Sodium Chloride 0.9% 10 ML Syringe FLUSH PRN (12:05)
[2024-08-20] MEDS: Ondansetron 4 MG/2 ML SDV IVPUSH ONE ×2 (12:05→12:07)
[2024-08-20 12:12] LABS: O2 DELIVERY DEVICE ROOM AIR
[2024-08-20 12:13] LABS: BASE EXCESS VENOUS -2.6 mmol/l ((-2)-(+3)); BICARBONATE,VENOUS 20 mmol/l (19-25); O2 SATURATION VENOUS 97.7 % (60-80); PCO2 VENOUS 29 mmHg (41-51); PH,VENOUS 7.45 (7.31-7.41); PO2 VENOUS 87 mmHg (35-42)
[2024-08-20 12:31] LABS: A/G RATIO 1.3; ALANINE AMINOTRANSFERASE,ALT 22 U/L (16-63); ALBUMIN 4.8 g/dL (3.4-5.0); ALKALINE PHOSPHATASE 95 U/L (46-116); ANION GAP 22.9 mEq/L (7-13); ASPARTATE AMNIOTRANSFERASE,AST 11 U/L (15-37); BILIRUBIN TOTAL 0.8 mg/dL (0.2-1.0); BLOOD UREA NITROGEN,BUN 10 mg/dL (7-18); CALCIUM 10.5 mg/dL (8.5-10.1); CARBON DIOXIDE,CO2 18 mmol/L (21-32); CHLORIDE,CL 106 mmol/L (98-107); CREATININE 1.25 mg/dL (0.70-1.30); GLUCOSE RANDOM 300 mg/dL (70-99); MAGNESIUM 1.6 mg/dL (1.8-2.4); POTASSIUM,K 3.9 mmol/L (3.5-5.1); PROTEIN TOTAL,TP 8.4 g/dL (6.4-8.2); SODIUM,NA 143 mmol/L (136-145)
[2024-08-20 12:32] LABS: C-REACTIVE PROTEIN < 0.50 ng/dL (<=0.50); ESTIMATED GFR 78 mL/min (>=60)
[2024-08-20] MEDS: Haloperidol Lactate 5 MG/ML SDV IVPUSH ONE (12:33)
[2024-08-20] MEDS: Sodium Chloride 0.9% 1,000 ML IV ONE (12:33)
[2024-08-20 12:57] LABS: BASOPHILS PERCENT AUTO 0.8 % (0.0-1.0); EOSINOPHILS PERCENT AUTO 1.9 % (1.0-3.0); HEMOGLOBIN 15.4 g/dL (14.0-18.0); LYMPHOCYTES PERCENT AUTO 17.1 % (20.5-50.1); MEAN CORPUSCULAR HEMOGLOBIN 31.6 pg (27.0-34.0); MEAN CORPUSCULAR HGB CONC 35.8 g/dL (33.0-35.0); MEAN CORPUSCULAR VOLUME 88.1 fL (80-100); MONOCYTES PERCENT AUTO 5.6 % (2-8); NEUTROPHILS PERCENT AUTO 74.6 % (42.2-75.2); PLATELET COUNT,PLT 281 10^3/uL (150-450); RED BLOOD CELL COUNT 4.88 10^6/uL (4.6-6.2); WHITE BLOOD CELL COUNT,WBC 15.4 10^3/uL (5.0-10.0)
[2024-08-20] MEDS: Ketorolac 30 MG/ML SDV IVPUSH ONE (13:09)
== END 2024-08-20 13:22 | disposition home or self-care (01) ==
LOC: DL.ED 11:43
DX: R11.10 Vomiting, unspecified (principal); F12.90 Cannabis use, unspecified, uncomplicated; E10.9 Type 1 diabetes mellitus without complications; Z91.030 Bee allergy status; Z88.8 Allergy status to other drugs, medicaments and biological substances; Z79.4 Long term (current) use of insulin; Z79.899 Other long term (current) drug therapy
CPT/HCPCS: 36415; 80053; 82803; 82947; 83735; 85025; 86140; 87428-QW; 96361; 96374; 96375; 99283; 99284-25; J1630; J1885; J2405; J7030

== ENCOUNTER 2024-12-06 14:25 | Inpatient (IN) | payer MEDICAID ==
[2024-12-06] MEDS: Ondansetron 4 MG/2 ML SDV IVPUSH ONE (15:19)
[2024-12-06] MEDS: Ondansetron 4 MG/2 ML SDV ONE (15:19)
[2024-12-06] MEDS: Sodium Chloride 0.9% 10 ML Syringe FLUSH PRN (15:32)
[2024-12-06 15:41] LABS: O2 DELIVERY DEVICE ROOM AIR
[2024-12-06 15:44] LABS: BASOPHILS PERCENT AUTO 0.3 % (0.0-1.0); EOSINOPHILS PERCENT AUTO 0.0 % (1.0-3.0); LYMPHOCYTES PERCENT AUTO 5.8 % (20.5-50.1); MONOCYTES PERCENT AUTO 3.6 % (2-8); NEUTROPHILS PERCENT AUTO 90.3 % (42.2-75.2); PLATELET COUNT,PLT 235 10^3/uL (150-450); RED BLOOD CELL COUNT 4.98 10^6/uL (4.6-6.2); WHITE BLOOD CELL COUNT,WBC 20.0 10^3/uL (5.0-10.0)
[2024-12-06 15:55] LABS: BASE EXCESS VENOUS -7 mmol/L ((-2)-(+3)); BICARBONATE,VENOUS 18 mmol/L (22-29); O2 SATURATION VENOUS 91 % (60-80); PCO2 VENOUS 28 mmHg (41-51); PH,VENOUS 7.41 pH (7.32-7.43); PO2 VENOUS 59 mmHg (35-42)
[2024-12-06 16:18] LABS: A/G RATIO 1.3; ALANINE AMINOTRANSFERASE,ALT 22.0 U/L (16-63); ASPARTATE AMNIOTRANSFERASE,AST 9.0 U/L (15-37); BILIRUBIN TOTAL 0.8 mg/dL (0.2-1.0); BLOOD UREA NITROGEN,BUN 24.0 mg/dL (7-18); CARBON DIOXIDE,CO2 24.0 mmol/L (21-32); CHLORIDE,CL 99.0 mmol/L (98-107); CREATININE 1.2 mg/dL (0.70-1.30); EST CRCL DRUG DOSING (CG) 81.86 mL/min; ESTIMATED GFR 82.0 mL/min (>=60); GLUCOSE RANDOM 318.0 mg/dL (70-99); POTASSIUM,K 3.9 mmol/L (3.5-5.1); PROTEIN TOTAL,TP 8.2 g/dL (6.4-8.2); SODIUM,NA 137.0 mmol/L (136-145)
[2024-12-06] MEDS: Potassium Chloride 20 MEQ in Premix Bag 1 BAG IV ONE (17:06)
[2024-12-06 17:11] LABS: APPEARANCE,URINE CLEAR (CLEAR); GLUCOSE,URINE 500 (NEGATIVE); OCCULT BLOOD,URINE NEGATIVE (NEGATIVE)
[2024-12-06 17:14] LABS: AMPHETAMINES,URINE NEGATIVE (NEGATIVE); BARBITURATES,URINE NEGATIVE (NEGATIVE); MDMA (ECSTASY), URINE NEGATIVE (NEGATIVE); METHAMPHETAMINES,URINE NEGATIVE (NEGATIVE); OPIATES,URINE NEGATIVE (NEGATIVE); OXYCODONE,URINE POSITIVE (NEGATIVE); PHENCYCLIDINE,URINE NEGATIVE (NEGATIVE); TCA,URINE NEGATIVE (NEGATIVE)
[2024-12-06] MEDS: Insulin Regular, Human 100 Units/ML 10 ML Vial IV ONE (17:15)
[2024-12-06 17:48] LABS: EPITHELIAL CELLS,URINE OCCASIONAL /HPF (NOT SEEN)
[2024-12-06 17:56] LABS: KETONES,BLOOD NEGATIVE
[2024-12-06 18:10] LABS: LACTIC ACID 2.4 mmol/L (0.4-2.0)
[2024-12-06] MEDS ORDERED: 50% Dextrose in Water 50 ML Syringe IVPUSH PRN ×2 (19:11→19:12)
[2024-12-06] MEDS: Ondansetron 4 MG/2 ML SDV IVPUSH PRN (19:39)
[2024-12-06 19:45] LABS: PHOSPHORUS 4.1 mg/dL (2.6-4.7)
[2024-12-06] MEDS: Lactated Ringers 1,000 ML IV ONE (19:48)
[2024-12-06] MEDS: Magnesium Sulf/Wat 4 GM/50 mL 4 GM in Premix Bag 1 BAG IV ONE (19:50)
[2024-12-06] MEDS: Heparin Sodium 5,000 Units/ML Vial SUBCUT SCH (20:29)
[2024-12-06 21:21] LABS: BLOOD UREA NITROGEN,BUN 23.0 mg/dL (7-18); CARBON DIOXIDE,CO2 25.0 mmol/L (21-32); CHLORIDE,CL 104.0 mmol/L (98-107); CREATININE 1.33 mg/dL (0.70-1.30); EST CRCL DRUG DOSING (CG) 76.43 mL/min; GLUCOSE RANDOM 273.0 mg/dL (70-99); POTASSIUM,K 3.7 mmol/L (3.5-5.1); SODIUM,NA 140.0 mmol/L (136-145)
[2024-12-06 21:22] LABS: ESTIMATED GFR 72.0 mL/min (>=60)
[2024-12-06 22:56] LABS: LACTIC ACID 2.4 mmol/L (0.4-2.0)
[2024-12-06 23:34] LABS: BLOOD UREA NITROGEN,BUN 21.0 mg/dL (7-18); CARBON DIOXIDE,CO2 25.0 mmol/L (21-32); CHLORIDE,CL 107.0 mmol/L (98-107); CREATININE 1.09 mg/dL (0.70-1.30); EST CRCL DRUG DOSING (CG) 93.26 mL/min; GLUCOSE RANDOM 158.0 mg/dL (70-99); POTASSIUM,K 3.7 mmol/L (3.5-5.1); SODIUM,NA 143.0 mmol/L (136-145)
[2024-12-06 23:35] LABS: ESTIMATED GFR 92.0 mL/min (>=60)
[2024-12-06] MEDS: Potassium Chloride 10 MEQ Tab.ER PO ONE (23:50)
[2024-12-07 03:24] LABS: BLOOD UREA NITROGEN,BUN 21.0 mg/dL (7-18); CARBON DIOXIDE,CO2 27.0 mmol/L (21-32); CHLORIDE,CL 106.0 mmol/L (98-107); CREATININE 1.06 mg/dL (0.70-1.30); EST CRCL DRUG DOSING (CG) 95.9 mL/min; GLUCOSE RANDOM 145.0 mg/dL (70-99); POTASSIUM,K 3.7 mmol/L (3.5-5.1); SODIUM,NA 142.0 mmol/L (136-145)
[2024-12-07 03:33] LABS: ESTIMATED GFR 95.0 mL/min (>=60)
[2024-12-07 06:35] LABS: BASOPHILS PERCENT AUTO 0.4 % (0.0-1.0); EOSINOPHILS PERCENT AUTO 0.1 % (1.0-3.0); LYMPHOCYTES PERCENT AUTO 13.3 % (20.5-50.1); MONOCYTES PERCENT AUTO 7.3 % (2-8); NEUTROPHILS PERCENT AUTO 78.9 % (42.2-75.2); PLATELET COUNT,PLT 231 10^3/uL (150-450); RED BLOOD CELL COUNT 4.57 10^6/uL (4.6-6.2); WHITE BLOOD CELL COUNT,WBC 16.4 10^3/uL (5.0-10.0)
[2024-12-07 06:50] LABS: BLOOD UREA NITROGEN,BUN 20.0 mg/dL (7-18); CARBON DIOXIDE,CO2 25.0 mmol/L (21-32); CHLORIDE,CL 105.0 mmol/L (98-107); CREATININE 1.11 mg/dL (0.70-1.30); EST CRCL DRUG DOSING (CG) 91.58 mL/min; GLUCOSE RANDOM 224.0 mg/dL (70-99); POTASSIUM,K 3.9 mmol/L (3.5-5.1); SODIUM,NA 142.0 mmol/L (136-145)
[2024-12-07 06:52] LABS: ESTIMATED GFR 90.0 mL/min (>=60)
[2024-12-07] MEDS: Insulin Isophane NPH, Human 100 Units/ML 10 ML Vial SUBCUT ONE (09:02)
[2024-12-07] MEDS ORDERED: 50% Dextrose in Water 50 ML Syringe IVPUSH PRN ×2 (11:33→11:35)
[2024-12-07] MEDS ORDERED: Amoxicillin/Clavulanate K 875-125 MG Tab ONE (11:34)
[2024-12-07] MEDS: Insulin Regular, Human 100 Units/ML 10 ML Vial SUBCUT ONE (11:51)
== END 2024-12-07 12:01 | disposition home or self-care (01) | DRG 871 ==
LOC: DL.ED 14:25 → DL.MS 16:51
PROVIDERS: ADMIT Internal Medicine; ATTEND Internal Medicine
DX: A41.9 Sepsis, unspecified organism (principal); E10.10 Type 1 diabetes mellitus with ketoacidosis without coma; R65.20 Severe sepsis without septic shock; R19.7 Diarrhea, unspecified; F41.9 Anxiety disorder, unspecified; F32.A Depression, unspecified; E83.42 Hypomagnesemia; E86.0 Dehydration; K04.7 Periapical abscess without sinus; Z88.8 Allergy status to other drugs, medicaments and biological substances; Z90.49 Acquired absence of other specified parts of digestive tract; Z91.030 Bee allergy status; Z91.018 Allergy to other foods; Z79.899 Other long term (current) drug therapy
CPT/HCPCS: 36415; 71045; 74176; 80048; 80053; 80305-QW; 81001; 82009; 82272; 82803; 82947; 83605; 83690; 83735; 84100; 84145; 84484; 85025; 87040; 87045; 87338; 87493; 87899; 93005; 96361; 96374; 99239; 99285-25; A9270-GY; J0696; J1644; J1815-GY; J2405; J2470; J3475; J3480; J7030; J7120; U0002

== ENCOUNTER 2024-12-08 18:43 | Emergency (ER) | payer MEDICAID ==
[2024-12-08] MEDS ORDERED: Sodium Chloride 0.9% 10 ML Syringe FLUSH PRN (19:45)
[2024-12-08 19:54] LABS: BASOPHILS PERCENT AUTO 0.7 % (0.0-1.0); EOSINOPHILS PERCENT AUTO 0.0 % (1.0-3.0); LYMPHOCYTES PERCENT AUTO 11.4 % (20.5-50.1); MONOCYTES PERCENT AUTO 6.1 % (2-8); NEUTROPHILS PERCENT AUTO 81.8 % (42.2-75.2); PLATELET COUNT,PLT 226 10^3/uL (150-450); RED BLOOD CELL COUNT 4.73 10^6/uL (4.6-6.2); WHITE BLOOD CELL COUNT,WBC 12.9 10^3/uL (5.0-10.0)
[2024-12-08] MEDS: Ondansetron 4 MG/2 ML SDV IVPUSH ONE (19:54)
[2024-12-08 20:05] LABS: KETONES,BLOOD NEGATIVE
[2024-12-08 20:09] LABS: LACTIC ACID 2.0 mmol/L (0.4-2.0)
[2024-12-08 20:18] LABS: A/G RATIO 1.2; ALANINE AMINOTRANSFERASE,ALT 29 U/L (16-63); ASPARTATE AMNIOTRANSFERASE,AST 13 U/L (15-37); BILIRUBIN TOTAL 1.0 mg/dL (0.2-1.0); BLOOD UREA NITROGEN,BUN 19 mg/dL (7-18); CARBON DIOXIDE,CO2 28 mmol/L (21-32); CHLORIDE,CL 99 mmol/L (98-107); CREATININE 1.34 mg/dL (0.70-1.30); EST CRCL DRUG DOSING (CG) 78.41 mL/min; ESTIMATED GFR 72 mL/min (>=60); GLUCOSE RANDOM 319 mg/dL (70-99); POTASSIUM,K 3.6 mmol/L (3.5-5.1); PROTEIN TOTAL,TP 8.1 g/dL (6.4-8.2); SODIUM,NA 137 mmol/L (136-145)
[2024-12-08 21:33] LABS: APPEARANCE,URINE CLEAR (CLEAR); GLUCOSE,URINE 500 (NEGATIVE); OCCULT BLOOD,URINE NEGATIVE (NEGATIVE)
[2024-12-08] MEDS: Amoxicillin/Clavulanate K 875-125 MG Tab PO ONE (21:44)
[2024-12-08] MEDS: Take Home: Amoxicillin/Clavulanate K 875-125 MG Tab, 6 Tab Pack PO ONE (22:38)
== END 2024-12-08 22:46 | disposition home or self-care (01) ==
LOC: DL.ED 18:43
DX: E10.65 Type 1 diabetes mellitus with hyperglycemia (principal); R11.2 Nausea with vomiting, unspecified; D72.829 Elevated white blood cell count, unspecified; F17.290 Nicotine dependence, other tobacco product, uncomplicated; Z91.030 Bee allergy status; Z88.1 Allergy status to other antibiotic agents; Z88.8 Allergy status to other drugs, medicaments and biological substances; Z79.4 Long term (current) use of insulin; Z79.899 Other long term (current) drug therapy; Z90.49 Acquired absence of other specified parts of digestive tract
CPT/HCPCS: 36415; 80053; 81003; 82009; 82947; 83605; 83735; 85025; 96361; 96374; 99284; A9270; J2405; J7030

== ENCOUNTER 2024-12-10 07:45 | Emergency (ER) | payer MEDICAID ==
[2024-12-10] MEDS: Ondansetron 4 MG/2 ML SDV IVPUSH ONE (08:10)
[2024-12-10 08:16] LABS: PLATELET COUNT,PLT 212 10^3/uL (150-450); RED BLOOD CELL COUNT 5.04 10^6/uL (4.6-6.2); WHITE BLOOD CELL COUNT,WBC 10.7 10^3/uL (5.0-10.0)
[2024-12-10 08:19] LABS: BASOPHILS PERCENT AUTO 1.4 % (0.0-1.0); EOSINOPHILS PERCENT AUTO 3.0 % (1.0-3.0); LYMPHOCYTES PERCENT AUTO 28.9 % (20.5-50.1); MONOCYTES PERCENT AUTO 6.2 % (2-8); NEUTROPHILS PERCENT AUTO 60.5 % (42.2-75.2)
[2024-12-10 08:30] LABS: A/G RATIO 1.2; ALANINE AMINOTRANSFERASE,ALT 23 U/L (16-63); ASPARTATE AMNIOTRANSFERASE,AST 8 U/L (15-37); BILIRUBIN DIRECT 0.2 mg/dL (0.0-0.2); BILIRUBIN INDIRECT 0.7; BILIRUBIN TOTAL 0.9 mg/dL (0.2-1.0); BLOOD UREA NITROGEN,BUN 15 mg/dL (7-18); CARBON DIOXIDE,CO2 24 mmol/L (21-32); CHLORIDE,CL 104 mmol/L (98-107); CREATININE 1.08 mg/dL (0.70-1.30); EST CRCL DRUG DOSING (CG) 100.45 mL/min; GLUCOSE RANDOM 232 mg/dL (70-99); POTASSIUM,K 3.8 mmol/L (3.5-5.1); PROTEIN TOTAL,TP 7.9 g/dL (6.4-8.2); SODIUM,NA 139 mmol/L (136-145)
[2024-12-10 08:37] LABS: ESTIMATED GFR 93 mL/min (>=60)
[2024-12-10 08:43] LABS: INR 1.0 (0.9-1.2); KETONES,BLOOD NEGATIVE
[2024-12-10 09:22] LABS: EOSINOPHILS PERCENT MAN 4 % (1-3); LYMPHOCYTES PERCENT MAN 35 % (20-50); MONOCYTES PERCENT MAN 10 % (2-8); SEG NEUTROPHILS PERCENT MAN 51 % (42-75)
[2024-12-10 10:15] LABS: APPEARANCE,URINE CLEAR (CLEAR); GLUCOSE,URINE 500 (NEGATIVE); OCCULT BLOOD,URINE NEGATIVE (NEGATIVE)
== END 2024-12-10 11:43 | disposition home or self-care (01) ==
LOC: DL.ED 07:45
DX: R11.10 Vomiting, unspecified (principal); F12.10 Cannabis abuse, uncomplicated; E10.9 Type 1 diabetes mellitus without complications; F17.200 Nicotine dependence, unspecified, uncomplicated; Z91.030 Bee allergy status; Z88.8 Allergy status to other drugs, medicaments and biological substances; Z79.4 Long term (current) use of insulin; Z79.899 Other long term (current) drug therapy; Z90.49 Acquired absence of other specified parts of digestive tract
CPT/HCPCS: 36415; 80048; 80076; 81003; 82009; 82150; 82800; 83690; 85025; 85610; 93005; 96361; 96374; 96375; 99285; J1630; J2405; J7030

== ENCOUNTER 2024-12-14 12:15 | Inpatient (IN) | payer MEDICAID ==
[2024-12-14 12:50] LABS: PLATELET COUNT,PLT 292 10^3/uL (150-450); RED BLOOD CELL COUNT 5.15 10^6/uL (4.6-6.2); WHITE BLOOD CELL COUNT,WBC 27.1 10^3/uL (5.0-10.0)
[2024-12-14 12:51] LABS: O2 DELIVERY DEVICE ROOM AIR
[2024-12-14 12:52] LABS: BASE EXCESS VENOUS -1.9 mmol/l ((-2)-(+3)); BICARBONATE,VENOUS 21 mmol/l (19-25); O2 SATURATION VENOUS 93.9 % (60-80); PCO2 VENOUS 33 mmHg (41-51); PH,VENOUS 7.42 (7.31-7.41); PO2 VENOUS 72 mmHg (35-42)
[2024-12-14 12:59] LABS: BASOPHILS PERCENT AUTO 0.3 % (0.0-1.0); EOSINOPHILS PERCENT AUTO 0.6 % (1.0-3.0); LYMPHOCYTES PERCENT AUTO 7.0 % (20.5-50.1); MONOCYTES PERCENT AUTO 7.4 % (2-8); NEUTROPHILS PERCENT AUTO 84.7 % (42.2-75.2)
[2024-12-14 13:34] LABS: A/G RATIO 1.1; ALANINE AMINOTRANSFERASE,ALT 20 U/L (16-63); ASPARTATE AMNIOTRANSFERASE,AST 10 U/L (15-37); BILIRUBIN TOTAL 1.0 mg/dL (0.2-1.0); BLOOD UREA NITROGEN,BUN 12 mg/dL (7-18); CARBON DIOXIDE,CO2 26 mmol/L (21-32); CHLORIDE,CL 102 mmol/L (98-107); CREATININE 1.07 mg/dL (0.70-1.30); EST CRCL DRUG DOSING (CG) 95.00 mL/min; GLUCOSE RANDOM 224 mg/dL (70-99); POTASSIUM,K 3.7 mmol/L (3.5-5.1); PROTEIN TOTAL,TP 7.2 g/dL (6.4-8.2); SODIUM,NA 136 mmol/L (136-145)
[2024-12-14 13:35] LABS: ESTIMATED GFR 94 mL/min (>=60); ETHANOL BLOOD MEDICAL < 3 mg/dL (0)
[2024-12-14] MEDS: Iopamidol 612 MG/ML 100 ML Bottle IVPUSH ONE (13:37)
[2024-12-14 13:39] LABS: KETONES,BLOOD NEGATIVE
[2024-12-14 13:47] LABS: BAND PERCENT MAN 3 %; LYMPHOCYTES % ATYPICAL MANUAL 2 %; LYMPHOCYTES PERCENT MAN 7 % (20-50); MONOCYTES PERCENT MAN 5 % (2-8); SEG NEUTROPHILS PERCENT MAN 83 % (42-75)
[2024-12-14] MEDS: metroNIDAZOLE/Normal Saline 500 MG in Premix Bag 1 BAG IV ONE (15:25)
[2024-12-14] MEDS: Lactated Ringers 1,000 ML IV SCH (15:26)
[2024-12-14] MEDS ORDERED: Ondansetron 4 MG/2 ML SDV IVPUSH PRN (16:39)
[2024-12-14] MEDS ORDERED: 50% Dextrose in Water 50 ML Syringe IVPUSH PRN ×2 (16:44→16:47)
[2024-12-14 17:11] LABS: T4 FREE 1.35 ng/dL (0.76-1.46); TSH ULTRASENSITIVE 1.33 uIU/mL (0.36-3.74)
[2024-12-14] MEDS: Insulin Glarg,Human.Rec.Analog 100 Unit/ML 10 ML Vial SUBCUT SCH (17:37)
[2024-12-14 19:26] LABS: LACTIC ACID 0.9 mmol/L (0.4-2.0)
[2024-12-14] MEDS: Heparin Sodium 5,000 Units/ML Vial SUBCUT SCH (23:19)
[2024-12-14] MEDS: metroNIDAZOLE/Normal Saline 500 MG in Premix Bag 1 BAG IV SCH (23:19)
[2024-12-15 06:05] LABS: BASOPHILS PERCENT AUTO 0.2 % (0.0-1.0); EOSINOPHILS PERCENT AUTO 0.2 % (1.0-3.0); LYMPHOCYTES PERCENT AUTO 5.7 % (20.5-50.1); MONOCYTES PERCENT AUTO 9.5 % (2-8); NEUTROPHILS PERCENT AUTO 84.4 % (42.2-75.2); PLATELET COUNT,PLT 220 10^3/uL (150-450); RED BLOOD CELL COUNT 4.39 10^6/uL (4.6-6.2); WHITE BLOOD CELL COUNT,WBC 19.8 10^3/uL (5.0-10.0)
[2024-12-15 06:23] LABS: BLOOD UREA NITROGEN,BUN 10.0 mg/dL (7-18); CARBON DIOXIDE,CO2 24.0 mmol/L (21-32); CHLORIDE,CL 101.0 mmol/L (98-107); CREATININE 0.93 mg/dL (0.70-1.30); EST CRCL DRUG DOSING (CG) 112.98 mL/min; GLUCOSE RANDOM 173.0 mg/dL (70-99); PHOSPHORUS 2.5 mg/dL (2.6-4.7); POTASSIUM,K 3.4 mmol/L (3.5-5.1); SODIUM,NA 135.0 mmol/L (136-145)
[2024-12-15 06:34] LABS: ESTIMATED GFR 111.0 mL/min (>=60)
[2024-12-15] MEDS ORDERED: 50% Dextrose in Water 50 ML Syringe IVPUSH PRN ×2 (08:26→15:50)
[2024-12-15] MEDS: Insulin Regular, Human 100 Units/ML 10 ML Vial IV ONE (09:20)
[2024-12-15] MEDS: Phosphorus #1 250 MG Tab PO SCH (09:29)
[2024-12-15] MEDS: Magnesium Sulf/Wat 4 GM/50 mL 4 GM in Premix Bag 1 BAG IV ONE (10:55)
[2024-12-15] MEDS ORDERED: Ondansetron 4 MG/2 ML SDV IVPUSH PRN (15:41)
[2024-12-15] MEDS: Insulin Isophane NPH, Human 100 Units/ML 10 ML Vial SUBCUT SCH (17:40)
[2024-12-16 06:13] LABS: BASOPHILS PERCENT AUTO 0.8 % (0.0-1.0); EOSINOPHILS PERCENT AUTO 5.2 % (1.0-3.0); LYMPHOCYTES PERCENT AUTO 19.0 % (20.5-50.1); MONOCYTES PERCENT AUTO 9.1 % (2-8); NEUTROPHILS PERCENT AUTO 65.9 % (42.2-75.2); PLATELET COUNT,PLT 223 10^3/uL (150-450); RED BLOOD CELL COUNT 4.05 10^6/uL (4.6-6.2); WHITE BLOOD CELL COUNT,WBC 9.0 10^3/uL (5.0-10.0)
[2024-12-16 06:29] LABS: BLOOD UREA NITROGEN,BUN 9.0 mg/dL (7-18); CARBON DIOXIDE,CO2 28.0 mmol/L (21-32); CHLORIDE,CL 106.0 mmol/L (98-107); CREATININE 0.94 mg/dL (0.70-1.30); EST CRCL DRUG DOSING (CG) 111.77 mL/min; GLUCOSE RANDOM 253.0 mg/dL (70-99); PHOSPHORUS 2.4 mg/dL (2.6-4.7); POTASSIUM,K 3.5 mmol/L (3.5-5.1); SODIUM,NA 137.0 mmol/L (136-145)
[2024-12-16 07:04] LABS: ESTIMATED GFR 110.0 mL/min (>=60)
[2024-12-16] MEDS: Insulin Glarg,Human.Rec.Analog 100 Unit/ML 10 ML Vial SUBCUT SCH (10:11)
[2024-12-16] MEDS: Omeprazole 20 MG Cap.CR **OWN MED PO SCH (17:26)
[2024-12-16] MEDS: CLARITHROMYCIN 500 MG PO SCH (20:29)
[2024-12-16] MEDS: AMOXICILLIN 500 MG PO SCH (20:29)
[2024-12-17 06:30] LABS: BASOPHILS PERCENT AUTO 1.2 % (0.0-1.0); EOSINOPHILS PERCENT AUTO 5.0 % (1.0-3.0); LYMPHOCYTES PERCENT AUTO 31.8 % (20.5-50.1); MONOCYTES PERCENT AUTO 8.8 % (2-8); NEUTROPHILS PERCENT AUTO 53.2 % (42.2-75.2); PLATELET COUNT,PLT 255 10^3/uL (150-450); RED BLOOD CELL COUNT 3.94 10^6/uL (4.6-6.2); WHITE BLOOD CELL COUNT,WBC 6.8 10^3/uL (5.0-10.0)
[2024-12-17 06:47] LABS: BLOOD UREA NITROGEN,BUN 7.0 mg/dL (7-18); CARBON DIOXIDE,CO2 25.0 mmol/L (21-32); CHLORIDE,CL 106.0 mmol/L (98-107); CREATININE 0.85 mg/dL (0.70-1.30); EST CRCL DRUG DOSING (CG) 123.61 mL/min; GLUCOSE RANDOM 234.0 mg/dL (70-99); POTASSIUM,K 3.3 mmol/L (3.5-5.1); SODIUM,NA 139.0 mmol/L (136-145)
[2024-12-17 06:50] LABS: ESTIMATED GFR 118.0 mL/min (>=60)
== END 2024-12-17 11:50 | disposition home or self-care (01) | DRG 872 ==
LOC: DL.ED 12:15 → EEVIPCON 12:15 → DL.MS 15:16
PROVIDERS: ADMIT Internal Medicine; ATTEND Internal Medicine
DX: A41.4 Sepsis due to anaerobes (principal); A04.72 Enterocolitis due to Clostridium difficile, not specified as recurrent; A41.50 Gram-negative sepsis, unspecified; R65.20 Severe sepsis without septic shock; K25.9 Gastric ulcer, unspecified as acute or chronic, without hemorrhage or perforation; F41.9 Anxiety disorder, unspecified; F32.A Depression, unspecified; E83.42 Hypomagnesemia; E10.65 Type 1 diabetes mellitus with hyperglycemia; E86.0 Dehydration; E87.6 Hypokalemia; E83.51 Hypocalcemia; E83.39 Other disorders of phosphorus metabolism; Z91.018 Allergy to other foods; Z91.030 Bee allergy status; Z90.49 Acquired absence of other specified parts of digestive tract; Z88.8 Allergy status to other drugs, medicaments and biological substances
CPT/HCPCS: 36415; 71260; 74177; 80048; 80053; 80307; 82009; 82803; 82947; 83036; 83605; 83630; 83690; 83735; 84100; 84439; 84443; 85025; 86592; 87040; 87045; 87046; 87324; 87389; 87493; 87899; 96361; 96374; 99223; 99233; 99239; 99285; 99285-25; A9270-GY; J0612; J1630; J1644; J1815-GY; J1836; J2470; J3475; J7030; J7120; Q9967

== ENCOUNTER 2025-01-31 07:10 | Emergency (ER) | payer MEDICAID ==
[2025-01-31] MEDS ORDERED: Sodium Chloride 0.9% 10 ML Syringe FLUSH PRN (07:19)
[2025-01-31] MEDS: Lactated Ringers 1,000 ML IV ONE ×2 (07:40→08:27)
[2025-01-31 07:41] LABS: O2 DELIVERY DEVICE ROOM AIR
[2025-01-31 07:42] LABS: BASE EXCESS VENOUS -1.2 mmol/l ((-2)-(+3)); BICARBONATE,VENOUS 23 mmol/l (19-25); O2 SATURATION VENOUS 93.2 % (60-80); PCO2 VENOUS 40 mmHg (41-51); PH,VENOUS 7.38 (7.31-7.41); PO2 VENOUS 70 mmHg (35-42)
[2025-01-31 07:43] LABS: BASOPHILS PERCENT AUTO 0.9 % (0.0-1.0); EOSINOPHILS PERCENT AUTO 1.6 % (1.0-3.0); LYMPHOCYTES PERCENT AUTO 14.0 % (20.5-50.1); MONOCYTES PERCENT AUTO 4.3 % (2-8); NEUTROPHILS PERCENT AUTO 79.2 % (42.2-75.2); PLATELET COUNT,PLT 224 10^3/uL (150-450); RED BLOOD CELL COUNT 4.84 10^6/uL (4.6-6.2); WHITE BLOOD CELL COUNT,WBC 11.2 10^3/uL (5.0-10.0)
[2025-01-31 08:04] LABS: A/G RATIO 1.3; ALANINE AMINOTRANSFERASE,ALT 28 U/L (16-63); ASPARTATE AMNIOTRANSFERASE,AST 16 U/L (15-37); BILIRUBIN TOTAL 1.0 mg/dL (0.2-1.0); BLOOD UREA NITROGEN,BUN 14 mg/dL (7-18); CARBON DIOXIDE,CO2 26 mmol/L (21-32); CHLORIDE,CL 101 mmol/L (98-107); CREATININE 0.90 mg/dL (0.70-1.30); EST CRCL DRUG DOSING (CG) 115.65 mL/min; GLUCOSE RANDOM 307 mg/dL (70-99); POTASSIUM,K 4.2 mmol/L (3.5-5.1); PROTEIN TOTAL,TP 8.4 g/dL (6.4-8.2); SODIUM,NA 138 mmol/L (136-145)
[2025-01-31 08:05] LABS: KETONES,BLOOD NEGATIVE
[2025-01-31 08:06] LABS: ESTIMATED GFR 115 mL/min (>=60)
== END 2025-01-31 09:20 | disposition home or self-care (01) ==
LOC: DL.ED 07:10
DX: E10.65 Type 1 diabetes mellitus with hyperglycemia (principal); Z91.030 Bee allergy status; Z79.4 Long term (current) use of insulin; Z79.899 Other long term (current) drug therapy; Z91.040 Latex allergy status; Z88.8 Allergy status to other drugs, medicaments and biological substances; Z88.1 Allergy status to other antibiotic agents
CPT/HCPCS: 36415; 80053; 82009; 82803; 82947; 83690; 85025; 93005; 93010; 99284; 99285; J7120

== ENCOUNTER 2025-04-16 08:20 | Emergency (ER) | payer MEDICAID ==
[2025-04-16 09:02] LABS: BASOPHILS PERCENT AUTO 0.3 % (0.0-1.0); EOSINOPHILS PERCENT AUTO 0.1 % (1.0-3.0); LYMPHOCYTES PERCENT AUTO 8.2 % (20.5-50.1); MONOCYTES PERCENT AUTO 4.0 % (2-8); NEUTROPHILS PERCENT AUTO 87.4 % (42.2-75.2); PLATELET COUNT,PLT 238 10^3/uL (150-450); RED BLOOD CELL COUNT 4.93 10^6/uL (4.6-6.2); WHITE BLOOD CELL COUNT,WBC 15.0 10^3/uL (5.0-10.0)
[2025-04-16 09:18] LABS: ALANINE AMINOTRANSFERASE,ALT 22 U/L (16-63); ASPARTATE AMNIOTRANSFERASE,AST 15 U/L (15-37); BILIRUBIN TOTAL 1.1 mg/dL (0.2-1.0); BLOOD UREA NITROGEN,BUN 33 mg/dL (7-18); CARBON DIOXIDE,CO2 24 mmol/L (21-32); CHLORIDE,CL 90 mmol/L (98-107); CREATININE 1.55 mg/dL (0.70-1.30); EST CRCL DRUG DOSING (CG) 67.15 mL/min; GLUCOSE RANDOM 395 mg/dL (70-99); POTASSIUM,K 3.5 mmol/L (3.5-5.1); PROTEIN TOTAL,TP 9.5 g/dL (6.4-8.2); SODIUM,NA 130 mmol/L (136-145)
[2025-04-16] MEDS: Ondansetron 4 MG/2 ML SDV IVPUSH ONE (09:18)
[2025-04-16] MEDS: Lactated Ringers 1,000 ML IV ONE (09:18)
[2025-04-16 09:19] LABS: KETONES,BLOOD SMALL
[2025-04-16 09:23] LABS: A/G RATIO 1.16; ESTIMATED GFR 60 mL/min (>=60); LACTIC ACID 2.1 mmol/L (0.4-2.0)
[2025-04-16] MEDS ORDERED: 50% Dextrose in Water 50 ML Syringe IVPUSH PRN ×2 (09:28→12:37)
[2025-04-16] MEDS: Insulin Regular, Human 100 Units/ML 10 ML Vial IV ONE ×2 (09:43→12:50)
[2025-04-16] MEDS: GI Cocktail Oral Solution 30 ML PO ONE (09:44)
[2025-04-16] MEDS: Potassium Chloride 10% 20 MEQ/15 ML Soln 15 ML UD Cup PO SCH (10:16)
[2025-04-16] MEDS: Potassium Chloride 10% 20 MEQ/15 ML Soln 15 ML UD Cup ONE (10:18)
[2025-04-16 12:19] LABS: APPEARANCE,URINE CLEAR (CLEAR); GLUCOSE,URINE 500 (NEGATIVE); OCCULT BLOOD,URINE NEGATIVE (NEGATIVE)
[2025-04-16 12:35] LABS: BLOOD UREA NITROGEN,BUN 31.0 mg/dL (7-18); CARBON DIOXIDE,CO2 27.0 mmol/L (21-32); CHLORIDE,CL 94.0 mmol/L (98-107); CREATININE 1.16 mg/dL (0.70-1.30); EST CRCL DRUG DOSING (CG) 89.73 mL/min; GLUCOSE RANDOM 297.0 mg/dL (70-99); POTASSIUM,K 3.9 mmol/L (3.5-5.1); SODIUM,NA 135.0 mmol/L (136-145)
[2025-04-16 12:36] LABS: ESTIMATED GFR 85.0 mL/min (>=60)
[2025-04-16 12:39] LABS: SQUAMOUS EPITHELIAL CELLS,UR RARE /HPF (NOT SEEN)
[2025-04-16] MEDS: Potassium Chloride 10 MEQ Tab.ER PO ONE (12:51)
== END 2025-04-16 13:15 | disposition home or self-care (01) ==
LOC: DL.ED 08:20
DX: K52.9 Noninfective gastroenteritis and colitis, unspecified (principal); E10.9 Type 1 diabetes mellitus without complications; Z91.030 Bee allergy status; Z88.8 Allergy status to other drugs, medicaments and biological substances; Z79.4 Long term (current) use of insulin; Z79.899 Other long term (current) drug therapy
CPT/HCPCS: 36415; 80048; 80053; 81001; 82009; 82947; 83605; 83690; 83735; 85025; 87086; 96361; 96365; 96375; 99283; 99284; A9270; J2405; J3480; J7120

== ENCOUNTER 2025-04-16 19:59 | Emergency (ER) | payer MEDICAID ==
[2025-04-16 20:46] LABS: PLATELET COUNT,PLT 228 10^3/uL (150-450); RED BLOOD CELL COUNT 4.77 10^6/uL (4.6-6.2); WHITE BLOOD CELL COUNT,WBC 13.3 10^3/uL (5.0-10.0)
[2025-04-16] MEDS: Ondansetron 4 MG/2 ML SDV IVPUSH ONE ×2 (20:53→22:19)
[2025-04-16] MEDS: Ondansetron 4 MG Tab.DIS PO ONE (20:59)
[2025-04-16 21:00] LABS: O2 DELIVERY DEVICE ROOM AIR
[2025-04-16 21:03] LABS: BASE EXCESS VENOUS 3.6 mmol/l ((-2)-(+3)); BICARBONATE,VENOUS 28 mmol/l (19-25); O2 SATURATION VENOUS 93.9 % (60-80); PCO2 VENOUS 41 mmHg (41-51); PH,VENOUS 7.45 (7.31-7.41); PO2 VENOUS 66 mmHg (35-42)
[2025-04-16 21:03] LABS: A/G RATIO 1.2; ALANINE AMINOTRANSFERASE,ALT 20 U/L (16-63); ASPARTATE AMNIOTRANSFERASE,AST 8 U/L (15-37); BILIRUBIN TOTAL 1.1 mg/dL (0.2-1.0); BLOOD UREA NITROGEN,BUN 29 mg/dL (7-18); CARBON DIOXIDE,CO2 26 mmol/L (21-32); CHLORIDE,CL 95 mmol/L (98-107); CREATININE 1.19 mg/dL (0.70-1.30); EST CRCL DRUG DOSING (CG) 87.47 mL/min; GLUCOSE RANDOM 324 mg/dL (70-99); POTASSIUM,K 3.9 mmol/L (3.5-5.1); PROTEIN TOTAL,TP 8.9 g/dL (6.4-8.2); SODIUM,NA 134 mmol/L (136-145)
[2025-04-16 21:08] LABS: ESTIMATED GFR 82 mL/min (>=60)
[2025-04-16 21:09] LABS: KETONES,BLOOD NEGATIVE
[2025-04-16 21:26] LABS: LYMPHOCYTES PERCENT MAN 13 % (20-50); MONOCYTES PERCENT MAN 5 % (2-8); SEG NEUTROPHILS PERCENT MAN 82 % (42-75)
[2025-04-16] MEDS: Take Home: Ondansetron 4 MG Tab.DIS, 5 Tab Pack PO ONE (22:00)
== END 2025-04-16 23:33 | disposition home or self-care (01) ==
LOC: DL.ED 19:59
DX: R11.16 Cannabis hyperemesis syndrome (principal); F12.10 Cannabis abuse, uncomplicated; E10.9 Type 1 diabetes mellitus without complications; Z91.030 Bee allergy status; Z88.8 Allergy status to other drugs, medicaments and biological substances; Z79.4 Long term (current) use of insulin; Z79.899 Other long term (current) drug therapy
CPT/HCPCS: 36415; 80053; 82009; 82803; 82947; 83735; 85025; 93005; 93010; 96361; 96374; 96375; 96376; 99283; 99284; J1630; J2405; J7030; Q0162